=== PATIENT | female | born 1945 | race Caucasian/White ===

== ENCOUNTER 2019-08-24 09:16 | Outpatient (CLI) | payer MEDICARE, SELFPAY ==
--- NOTE | 2019-08-24 09:24 | MM_ITS ---
WS: [id number] BILATERAL DIGITAL SCREENING MAMMOGRAPHY WITH CAD CLINICAL INFORMATION: SREEN HISTORY: Screening mammogram. No current complaints. COMPARISON: March 19, 2018 TECHNIQUE: Bilateral CC and MLO views. FINDINGS: Scattered fibroglandular densities bilaterally. No suspicious focal mass, asymmetry, calcifications, or architectural distortion. No evidence of malignancy. Stable nodular dense breast tissue subareolar right breast unchanged MM/[place] [id number] IMPRESSION: BI-RADS: 2-Benign FOLLOW UP: 1 Year Follow-up Recommend return to annual screening mammography.
== END 2019-08-24 09:17 | disposition home or self-care (01) ==
LOC: RADSHAW 09:16
PROVIDERS: PCP Electrodiagnostic Medicine; Visit Provider Electrodiagnostic Medicine
DX: Z12.31 Encounter for screening mammogram for malignant neoplasm of breast (principal)
CPT/HCPCS: 77067

== ENCOUNTER 2020-10-06 13:07 | Outpatient (CLI) | payer MEDICARE, SELFPAY ==
--- NOTE | 2020-10-06 13:20 | MM_ITS ---
WS: [id number] SCREENING DIGITAL MAMMOGRAM WITH CAD HISTORY: SCREENING COMPARISON: 08/24/2019, 03/19/2018 and 02/24/2017 Bilateral CC and MLO views submitted. Computer aided detection analyzed. Breast composition: There are scattered areas of fibroglandular density. Nodule with focal calcificat ion measuring 7 mm at 12:00 RIGHT breast, middle depth. This nodule may have been present on prior st udies but appears slightly more dense today and the calcification is new. Otherwise no suspicious nita nges. MM/[place] [id number] IMPRESSION: BI-RADS: 0-Incomplete: Need additional imaging evaluation FOLLOW UP: Need Additional Imaging RIGHT breast: Spot compression views (CC and MLO). True ML. Ultrasound to follo w if abnormality persists.
== END 2020-10-06 13:08 | disposition home or self-care (01) ==
PROVIDERS: PCP Electrodiagnostic Medicine; Visit Provider Electrodiagnostic Medicine
DX: Z12.31 Encounter for screening mammogram for malignant neoplasm of breast (principal)
CPT/HCPCS: 77067

== ENCOUNTER 2020-10-08 15:08 | Emergency (ER) | payer MEDICARE, SELFPAY ==
[2020-10-08 16:29] VITALS: BP 129/56; PULSE 58; RESP 18; TEMP 36.7; O2SAT 99; BMI 21.4
--- NOTE | 2020-10-08 16:44 | CTR_ITS ---
PROCEDURE INFORMATION: Exam: CT Head Without Contrast Exam date and time: 10/08/2020 4:44 PM Age: 74 years old Clinical indication: Injury or trauma; Blunt trauma (contusions or hematomas); Consciousness not specified; Patient HX: ? Syncope and fall from standing hematoma to forehead and lac to nose; Additional info: Head injury TECHNIQUE: Imaging protocol: Computed tomography of the head without contrast. Radiation optimization: All CT scans at this facility use at least one of these dose optimization techniques: automated exposure control; mA and/or kV adjustment per patient size (includes targeted exams where dose is matched to clinical indication); or iterative reconstruction. COMPARISON: No relevant prior studies available. RADIATION DOSE METRICS: Total DLP (mGy-cm): 727.86 FINDINGS: Brain: Normal. No hemorrhage. Unremarkable white matter. No mass effect. Cerebral ventricles: No ventriculomegaly. Paranasal sinuses: Visualized sinuses are unremarkable. No fluid levels. Mastoid air cells: Visualized mastoid air cells are well aerated. Bones/joints: Unremarkable. No acute fracture. Soft tissues: Right frontal contusion. Nose laceration noted. CT/CT head wo con* [id number] IMPRESSION: Right frontal contusion and nose laceration. No acute intracranial abnormality. Radiation Dose CTDIVOL = (mGy): DLP = 727.86 (mGy-cm)
--- NOTE | 2020-10-08 17:11 | ECG_ITS ---
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 Measurements Intervals [place] Rate: 51 P: 60 WI: 180 QRS: -1 QRSD: 82 T: 62 QT: 433 QTc: 400 Interpretive Statements SINUS BRADYCARDIA LOW QRS VOLTAGE IN PRECORDIAL LEADS [QRS DEFLECTION < 1.0 mV IN CHEST LEADS] No previous ECG available for comparison Electronically Signed On 10-09-2020 18:11:07 CDT by Chris Zurita M.D. [id number]
--- NOTE | 2020-10-08 17:11 | XRR_ITS ---
PROCEDURE INFORMATION: Exam: XR Chest Exam date and time: 10/08/2020 5:11 PM Age: 74 years old Clinical indication: Other: Syncope TECHNIQUE: Imaging protocol: XR of the chest. Views: 1 view. COMPARISON: No relevant prior studies available. FINDINGS: Lungs: Unremarkable. No consolidation. Pleural spaces: Unremarkable. No pleural effusion. No pneumothorax. Heart/Mediastinum: Unremarkable. No cardiomegaly. Bones/joints: Unremarkable. XR/XR chest 1V portable [id number] IMPRESSION: No acute findings.
[2020-10-08 18:38] LABS: Basophils # 0.1 10^3/uL (0.0-0.1); Basophils % 0.5 %; Eosinophils % 0.1 %; Hematocrit 44.7 % (37.0-47.0); Hemoglobin 14.5 g/dL (11.5-15.3); Lymphocytes % 17.4 %; Mean Corpuscular HGB Conc 32.4 g/dL (30.0-36.0); Mean Corpuscular Hemoglobin 30.3 pg (28.0-34.0); Mean Corpuscular Volume 93.5 fL (81-99); Mean Platelet Volume 10.8 fL (7.4-10.4); Monocytes # 0.5 10^3/uL (0.2-0.9); Monocytes % 4.5 %; Neutrophils # 8.79 10^3/uL (1.8-7.7); Neutrophils % 77.2 %; Nucleated Red Blood Cells % 0 %; Platelet Count 201 10^3/cmm (130-400); Red Blood Count 4.78 10^6/uL (4.1-5.3); Red Cell Distribution Width 12.5 % (12.1-15.1); White Blood Count 11.4 10^3/uL (4.0-10.0)
[2020-10-08 18:51] LABS: INR 0.95 (0.8-1.2)
[2020-10-08 18:56] LABS: Troponin(5th) Baseline 9 ng/L (0-10)
[2020-10-08 18:58] LABS: Alanine Aminotransferase 15 U/L (0-33); Albumin Level 4.6 g/dL (3.5-5.2); Alkaline Phosphatase 84 IU/L (35-105); Carbon Dioxide 28 mmol/L (22-29); Chloride 101 mmol/L (98-107); Globulin 2.5 g/dL (1.3-4.6); Glucose 96 mg/dL (65-115); Sodium 140 mmol/L (136-145); Total Bilirubin 0.5 mg/dL (0.15-1.2); Total Protein 7.1 g/dL (6.6-8.7)
--- NOTE | 2020-10-08 19:11 | ECG_ITS ---
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 Measurements Intervals [place] Rate: 55 P: 68 CA: 181 QRS: -6 QRSD: 87 T: 54 QT: 423 QTc: 405 Interpretive Statements SINUS BRADYCARDIA Compared to ECG 10/08/2020 17:22:27 No significant changes Electronically Signed On 10-09-2020 18:12:49 CDT by Chris Zurita M.D. [id number]
[2020-10-08 19:18] LABS: Blood Urea Nitrogen 14 mg/dL (8-23); Calcium 9.8 mg/dL (8.5-10.5); Osmolality Calculated 290 mOsm/kg (285-295)
[2020-10-08 19:20] LABS: Anion Gap 17.3 (5-19); Aspartate Amino Transferase 29 U/L (0-32); Potassium 5.3 mmol/L (3.5-5.1)
[2020-10-08 19:36] LABS: Add Urine Microscopic? NO; Charge for UA Resulting for Rev
[2020-10-08 19:44] LABS: Urine Appearance Clear (CLEAR); Urine Color Straw (Yellow)
[2020-10-08 19:45] LABS: Bilirubin Urine Neg (Negative); Blood Urine Neg (Negative); Glucose Urine UA Norm (Normal); Ketones Urine Negative (Negative); Leukocyte Esterase Urine Negative (Negative); Nitrate Urine Negative (Negative); Protein Urine Neg (Negative); Sulfosalicylic Acid Urine Negative (Negative); Urobilinogen Urine Norm (Negative); pH Urine 8 (5-7)
--- NOTE | 2020-10-08 20:37 | ED_ITS ---
HPI - Wound/Laceration General: Chief Complaint: Wound/Laceration Stated Complaint: FELL FROM STANDING HT, HIT HEAD ON COUNTER/LAC Time Seen by Provider: 10/08/20 16:38 Source: patient and family () Mode of arrival: ambulatory Limitations: no limitations History of Present Illness: HPI narrative: 74-year-old female patient was brought into the emergency department by her after a fall. The patient was in the kitchen could not subacute combined and does not know what happened next. She woke up on the floor and had a caught to her nose. She called out for her who helped her up. She does not think she had any chest pain or dizziness prior to the fall but she cannot remember. Her only complaint now is mild pain to the area of the laceration on her nose. Onset (ago): hour(s) (1) Location: face Place: home Context: accidental Associated symptoms: Denies chills, fever(s), foreign body sensation, inability to move, nausea, numbness, pain, syncope or vomiting Review of Systems General: Reports: 10 or more systems reviewed and unremarkable except in HPI and below Const: Denies: fever(s) or chills Card: Denies: syncope GI: Denies: nausea or vomiting Physical Exam Const: COMMON NORMALS: no acute distress, average body habitus, patient oriented x3, no limitations, healthy appearing, alert and well nourished HENMT: COMMON NORMALS: normocephalic and moist oral mucous membranes HEAD & SCALP: normocephalic NOSE: Abnormal external nose present (2 cm laceration on the bridge of her nose with minor bleeding.) nasal laceration Eye: COMMON NORMALS: Equal, round and reactive pupils present, EOMs intact bilaterally, conjunctivae normal and no scleral icterus CONJUNCTIVA: Yes conjunctivae normal PUPIL: Yes Equal, round and reactive pupils present Neck/C-Spine: COMMON NORMALS: full ROM, supple, no meningeal signs, no JVD and No carotid bruits Resp: COMMON NORMALS: normal respiratory effort, No retractions, No use of accessory muscles, clear to auscultation bilaterally and percussion normal AUSCULTATION: clear to auscultation bilaterally PERCUSSION: percussion normal Cardio: COMMON NORMALS: no JVD, regular rate, regular rhythm, S1 normal heart sound present, S2 normal heart sound present, No gallops present (Cardio), No clicks present (Cardio), No murmurs present (Cardio), No rub (Cardio) and Peripheral pulses 2+ throughout RATE: regular rate RHYTHM: regular rhythm HEART SOUNDS: S1 normal heart sound present and S2 normal heart sound present PERIPHERAL PULSES: Peripheral pulses 2+ throughout GI: COMMON NORMALS: Normal to inspection, nondistended, normoactive bowel sounds present, Soft to palpation, non-tender, No hepatosplenomegaly present, no masses and no bruits PALPATION: Yes Soft to palpation and Yes No hepatosplenomegaly present Extremity: COMMON NORMALS: normal to inspection, full ROM, capillary refill normal, no calf tenderness and no pedal edema Neuro: COMMON NORMALS: patient oriented x3 SENSORIUM/ORIENTATION: Yes alert MENINGEAL SIGNS: Yes no meningeal signs Skin: COMMON NORMALS: no rashes or lesions noted, no wounds, turgor normal, no jaundice, no petechiae and no mottling GENERAL SKIN EXAM: no rashes or lesions noted and turgor normal Procedures Laceration Laceration 1: Site: face (nasal bridge) Size (cm): 2 Description: linear Depth: simple, single layer Pre-repair: wound explored, irrigated extensively and deep structures intact Skin layer closed with: other (tissue adhesive) Course Reevaluation(s): Reevaluation #1: Discussed her lab and imaging findings with her. Negative for acute findings. I cannot determine the cause for her fall but it does not appear to be related to anything life-threatening. We will discharge her home with no new orders. She voiced understanding and is in agreement with the plan Time: 20:37 Vital Signs: Vital signs: Vital Signs Temperature 98.1 F 10/08/20 16:29 Pulse Rate 74 10/08/20 21:04 Respiratory Rate 18 10/08/20 21:04 Blood Pressure 122/70 10/08/20 21:04 Pulse Oximetry 97 10/08/20 21:04 MDM - Wound/Laceration MDM Narrative: Medical decision making narrative: 74-year-old female who had a ground-level fall today at home. She does not recall why she fell and so a work-up was done in the emergency department. Work-up was unremarkable and she is discharged home with no new orders. Her wound was cleaned and closed using tissue adhesive. Medical Records: Attestation: I reviewed the patient's medical records. Lab Data: Attestation: I reviewed the patient's lab results. Labs: Lab Results 10/08/20 10/08/20 10/08/20 Range/Units 18:32 18:32 18:32 WBC 11.4 H (4.0-10.0) 10^3/ uL RBC 4.78 (4.1-5.3) 10^6/u L Hgb 14.5 (11.5-15.3) g/dL Hct 44.7 (37.0-47.0) % MCV 93.5 (81-99) fL MCH 30.3 (28.0-34.0) pg MCHC 32.4 (30.0-36.0) g/dL RDW 12.5 (12.1-15.1) % Plt Count 201 (130-400) 10^3/c mm MPV 10.8 H (7.4-10.4) fL Neut % (Auto) 77.2 % Lymph % (Auto) 17.4 % [place] % (Auto) 4.5 % Eos % (Auto) 0.1 % Baso % (Auto) 0.5 % Neut # (Auto) 8.79 H (1.8-7.7) 10^3/u L Lymph # (Auto) 2.0 (0.8-4.8) 10^3/u L [place] # (Auto) 0.5 (0.2-0.9) 10^3/u L Eos # (Auto) 0.0 (0.0-0.8) 10^3/u L Baso # (Auto) 0.1 (0.0-0.1) 10^3/u L Nucleated RBC % (a uto) 0 % Nucleated RBCs # 0.0 /100WBC PT 12.90 (12.1-14.9) SECO NDS INR 0.95 (0.8-1.2) Sodium 140 (136-145) mmol/L Potassium 5.3 H (3.5-5.1) mmol/L Chloride 101 (98-107) mmol/L Carbon Dioxide 28 (22-29) mmol/L Anion Gap 17.3 (5-19) BUN 14 (8-23) mg/dL Creatinine 0.8 (0.5-0.9) mg/dL GFR Calculation Not Reportable Glucose 96 (65-115) mg/dL Calculated Osmolal ity 290 (285-295) mOsm/k g Calcium 9.8 (8.5-10.5) mg/dL Total Bilirubin 0.5 (0.15-1.2) mg/dL AST 29 (0-32) U/L ALT 15 (0-33) U/L Alkaline Phosphata se 84 (35-105) IU/L Troponin T Baselin e (0-10) ng/L Troponin T 120 Min [place] (0-10) ng/L Delta Troponin T (0-10) ABS# Total Protein 7.1 (6.6-8.7) g/dL Albumin 4.6 (3.5-5.2) g/dL Globulin 2.5 (1.3-4.6) g/dL Urine Color (Yellow) Urine Appearance (CLEAR) Urine pH (5-7) Ur Specific Gravit y (1.005-1.030) Urine Protein (Negative) Urine Glucose (UA) (Normal) Urine Ketones (Negative) Urine Blood (Negative) Urine Nitrate (Negative) Urine Bilirubin (Negative) Prot Sulfosalicyli c Acd (Negative) Urine Urobilinogen (Negative) mg/dL Ur Leukocyte Jazlyn ase (Negative) 10/08/20 10/08/20 10/08/20 Range/Units 18:32 19:24 20:49 WBC (4.0-10.0) 10^3/ uL RBC (4.1-5.3) 10^6/u L Hgb (11.5-15.3) g/dL Hct (37.0-47.0) % MCV (81-99) fL MCH (28.0-34.0) pg MCHC (30.0-36.0) g/dL RDW (12.1-15.1) % Plt Count (130-400) 10^3/c mm MPV (7.4-10.4) fL Neut % (Auto) % Lymph % (Auto) % [place] % (Auto) % Eos % (Auto) % Baso % (Auto) % Neut # (Auto) (1.8-7.7) 10^3/u L Lymph # (Auto) (0.8-4.8) 10^3/u L [place] # (Auto) (0.2-0.9) 10^3/u L Eos # (Auto) (0.0-0.8) 10^3/u L Baso # (Auto) (0.0-0.1) 10^3/u L Nucleated RBC % (a uto) % Nucleated RBCs # /100WBC PT (12.1-14.9) SECO NDS INR (0.8-1.2) Sodium (136-145) mmol/L Potassium (3.5-5.1) mmol/L Chloride (98-107) mmol/L Carbon Dioxide (22-29) mmol/L Anion Gap (5-19) BUN (8-23) mg/dL Creatinine (0.5-0.9) mg/dL GFR Calculation Glucose (65-115) mg/dL Calculated Osmolal ity (285-295) mOsm/k g Calcium (8.5-10.5) mg/dL Total Bilirubin (0.15-1.2) mg/dL AST (0-32) U/L ALT (0-33) U/L Alkaline Phosphata se (35-105) IU/L Troponin T Baselin e 9 (0-10) ng/L Troponin T 120 Min [place] 8.09 (0-10) ng/L Delta Troponin T -0.91 L (0-10) ABS# Total Protein (6.6-8.7) g/dL Albumin (3.5-5.2) g/dL Globulin (1.3-4.6) g/dL Urine Color Straw (Yellow) Urine Appearance Clear (CLEAR) Urine pH 8 H (5-7) Ur Specific Gravit y 1.010 (1.005-1.030) Urine Protein Neg (Negative) Urine Glucose (UA) Norm (Normal) Urine Ketones Negative (Negative) Urine Blood Neg (Negative) Urine Nitrate Negative (Negative) Urine Bilirubin Neg (Negative) Prot Sulfosalicyli c Acd Negative (Negative) Urine Urobilinogen Norm (Negative) mg/dL Ur Leukocyte Jazlyn ase Negative (Negative) Imaging Data^: CXR: Attestation: I personally reviewed and interpreted this imaging study as follows: Radiologist's impression: [employer] [address]LLnc ReportSigned Patient: Ysabel Jeter #: [id number]: 1945cct#:[id number]/Sex: FADM Date: 10/08/20Loc: ERRoom/Bed:Attending Dr: Ordering Provider/Ordering MD: Arnie Morel MD, [facility] Date of Service: 10/08/20 Procedure(s): XR chest 1V portable [id number] Accession Number(s): [id number] Report Number: [id number] PROCEDURE INFORMATION: Exam: XR Chest Exam date and time: 10/08/2020 5:11 PM Age: 74 years old Clinical indication: Other: Syncope TECHNIQUE: Imaging protocol: XR of the chest. Views: 1 view. COMPARISON: No relevant prior studies available. FINDINGS: Lungs: Unremarkable. No consolidation. Pleural spaces: Unremarkable. No pleural effusion. No pneumothorax. Heart/Mediastinum: Unremarkable. No cardiomegaly. Bones/joints: Unremarkable. XR/XR chest 1V portable [id number] IMPRESSION: No acute findings. Dictated By:Pranav Alexandre DOSigned By:Pranav Alexandre DOSigned Date/Time:10/08/20/ 06 CT Head: Attestation: I personally reviewed and interpreted this imaging study as follows: Radiologist's impression: [id number], [place] [address]TT Scan ReportSigned Patient: Ysabel Jeter #: [id number]: 1945cct#:[id number]/Sex: FAD Date: 10/08/20Loc: ERRoom/Bed:Attending Dr: Ordering Provider/Ordering MD: Arnie Morel MD, [facility] Date of Service: 10/08/20 Procedure(s): CT head wo con* [id number] Accession Number(s): [id number] Report Number: [id number] PROCEDURE INFORMATION: Exam: CT Head Without Contrast Exam date and time: 10/08/2020 4:44 PM Age: 74 years old Clinical indication: Injury or trauma; Blunt trauma (contusions or hematomas); Consciousness not specified; Patient HX: ? Syncope and fall from standing hematoma to forehead and lac to nose; Additional info: Head injury TECHNIQUE: Imaging protocol: Computed tomography of the head without contrast. Radiation optimization: All CT scans at this facility use at least one of these dose optimization techniques: automated exposure control; mA and/or kV adjustment per patient size (includes targeted exams where dose is matched to clinical indication); or iterative reconstruction. COMPARISON: No relevant prior studies available. RADIATION DOSE METRICS: Total DLP (mGy-cm): 727.86 FINDINGS: Brain: Normal. No hemorrhage. Unremarkable white matter. No mass effect. Cerebral ventricles: No ventriculomegaly. Paranasal sinuses: Visualized sinuses are unremarkable. No fluid levels. Mastoid air cells: Visualized mastoid air cells are well aerated. Bones/joints: Unremarkable. No acute fracture. Soft tissues: Right frontal contusion. Nose laceration noted. CT/CT head wo con* [id number] IMPRESSION: Right frontal contusion and nose laceration. No acute intracranial abnormality. Radiation Dose CTDIVOL = (mGy): DLP = 727.86 (mGy-cm) Dictated By:Pranav Alexandre DOSigned By:Pranav Alexandre DOSigned Date/Time:10/08/201727DD/ 25 EKG Data^: EKG 1: Attestation: I personally reviewed and interpreted this EKG as follows: EKG interpretation date: 10/08/20 EKG interpretation time: 17:22 Prior EKG tracings: not available for review Interpretation: Sinus bradycardia. Heart rate 51 bpm. Normal axis. No ST changes. EKG 2: Attestation: I personally reviewed and interpreted this EKG as follows: EKG interpretation date: 10/08/20 EKG interpretation time: 19:24 Prior EKG tracings: available for review Interpretation: Sinus bradycardia. Heart rate 55 bpm. Normal axis. No ST changes. No significant change from earlier. Discharge Plan Discharge Patient Disposition: Home Clinical Impression: Fall against object Laceration of nose Qualifiers: Encounter type: initial encounter Qualified Code(s): S01.21XA - Laceration without foreign body of nose, initial encounter Mild closed head injury Qualifiers: Encounter type: initial encounter Qualified Code(s): S09.90XA - Unspecified injury of head, initial encounter Condition: Stable Prescriptions: Continued citalopram 20 mg tablet 10 mg PO QAM RF: 0 levothyroxine 50 mcg tablet 50 mcg PO QAM RF: 0 calcium carbonate-vitamin D2 600 mg calcium- 200 unit Tablet 1 tab PO BID RF: 0 ezetimibe 10 mg tablet 10 mg PO QAM RF: 0 Discharge Orders: Discharge ED (Routine); Ordered 10/08/20 Ordered By: Arnie Morel Referrals: Justin Jeter DO [Primary Care Provider] - 1-3 days Discharge Diet: Usual diet Discharge Activity: Increase activity as tolerated Patient Instructions: Fall Prevention for Older Adults (ED), Minor Head Injury (ED), Skin Adhesive Care (ED) Activity Restrictions/Additional Instructions: Return for any new or worsening symptoms. Follow-up with the primary care provider within 3 days. Keep your wound clean and dry. The Steri-Strips will fall off on their own, you do not need to take them off. Coding Level of Care Code ED Clothing Pattern Preparer for Parris Villalta
[2020-10-08 21:04] VITALS: BP 122/70; PULSE 74; RESP 18; O2SAT 97
[2020-10-08 21:13] LABS: Troponin 5 2HR 8.09 ng/L (0-10)
[2020-10-08 21:19] LABS: Troponin 5 2HR Delta -0.91 ABS# (0-10)
== END 2020-10-08 20:50 | disposition home or self-care (01) ==
PROVIDERS: Emergency Provider Family Medicine; PCP Electrodiagnostic Medicine
DX: S01.21XA Laceration without foreign body of nose, initial encounter (principal); S09.8XXA Other specified injuries of head, initial encounter; W19.XXXA Unspecified fall, initial encounter
CPT/HCPCS: 12011; 36415; 70450; 71045; 80053; 81003; 84484; 85025; 85610; 93005; 99283

== ENCOUNTER 2020-10-23 08:32 | Outpatient (CLI) | payer MEDICARE, SELFPAY ==
--- NOTE | 2020-10-23 08:37 | MM_ITS ---
WS: [id number] Exam: [place] [id number] Date/Time of Exam: 10/23/2020 9:02 AM Reason For Exam: RIGHT BREAST MASS Magnification compression spot images of the right breast are performed in the MLO and CC projections . A 90 degree lateral image of the right breast was also included in the series. Comparison made to s creening mammogram performed 10/06/2020. A persistent 7 mm ovoid nodule seen at the 12:00 position in the right breast at mid depth. No suspic ious architectural distortion or microcalcification noted. Recommendations: Regional ultrasound recommended for further workup. MM/[place] [id number] IMPRESSION: 1. Persistent 7 mm ovoid nodule seen at the 12:00 position in the right breast. BI-RADS Category 0.
--- NOTE | 2020-10-23 08:37 | US_ITS ---
WS: [id number] Exam: US breast RT limited* [id number] Date/Time of Exam: 10/23/2020 8:37 AM Reason For Exam: RIGHT BREAST MASS Regional ultrasound of 12:00 position of the right breast is performed. A 0.6 x 0.31 .57 cm smoothly marginated ovoid nodule is noted at the 12:00 position 3 cm from the nip ple in the right breast. This corresponds to the nodular density identified on the screening and diag nostic mammographic images performed recently. The appearance suggests an intramammary lymph node. No other discrete lesions were identified in this area. Recommendations: Continue yearly screening mammography. US/US breast RT limited* [id number] IMPRESSION: 1. 0.6 x 0.31 x 0.57 cm smoothly marginated ovoid nodule at the 12:00 position in the right breast most likely representing a small intramammary lymph node. T his corresponds to the previously described abnormality on recent mammographic images. BI-RADS Category 2.
== END 2020-10-23 08:33 | disposition home or self-care (01) ==
LOC: RADSHAW 08:35
PROVIDERS: PCP Electrodiagnostic Medicine; Visit Provider Electrodiagnostic Medicine
DX: N63.15 Unspecified lump in the right breast, overlapping quadrants (principal)
CPT/HCPCS: 76642; 77065

== ENCOUNTER 2020-12-25 17:40 | Emergency (ER) | payer MEDICARE, SELFPAY ==
[2020-12-25] VITALS (17 sets, daily range): BP systolic 131–156; BP diastolic 53–65; PULSE 49–76; RESP 15–24; TEMP 36.7; O2SAT 97–100; BMI 21.1
--- NOTE | 2020-12-25 18:21 | ECG_ITS ---
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 Measurements Intervals [place] Rate: 53 P: 72 AK: 190 QRS: 8 QRSD: 82 T: 54 QT: 416 QTc: 393 Interpretive Statements SINUS BRADYCARDIA LOW QRS VOLTAGE IN PRECORDIAL LEADS [QRS DEFLECTION < 1.0 mV IN CHEST LEADS] Compared to ECG 10/08/2020 19:24:37 Low QRS voltage now present Electronically Signed On 12-25-2020 22:07:33 CDT by Chris Zurita M.D. [id number]
[2020-12-25 19:22] LABS: Basophils % 0.5 %; Eosinophils % 0.1 %; Hematocrit 42.8 % (37.0-47.0); Hemoglobin 13.9 g/dL (11.5-15.3); Lymphocytes # 1.8 10^3/uL (0.8-4.8); Lymphocytes % 20.1 %; Mean Corpuscular HGB Conc 32.5 g/dL (30.0-36.0); Mean Corpuscular Hemoglobin 30.8 pg (28.0-34.0); Mean Corpuscular Volume 94.7 fl (81-99); Mean Platelet Volume 10.9 fL (7.4-10.4); Monocytes # 0.3 10^3/uL (0.2-0.9); Monocytes % 3.7 %; Neutrophils # 6.67 10^3/uL (1.8-7.7); Neutrophils % 75.4 %; Nucleated Red Blood Cells % 0 %; Platelet Count 172 10^3/cmm (130-400); Red Blood Count 4.52 10^6/uL (4.1-5.3); Red Cell Distribution Width 12.5 % (12.1-15.1); White Blood Count 8.9 10^3/uL (4.0-10.0)
[2020-12-25 19:38] LABS: Troponin(5th) Baseline 8 ng/L (0-10)
[2020-12-25 19:43] LABS: Alanine Aminotransferase 14 U/L (0-33); Albumin Level 4.4 g/dL (3.5-5.2); Alkaline Phosphatase 74 IU/L (35-105); Aspartate Amino Transferase 27 U/L (0-32); Blood Urea Nitrogen 16 mg/dL (8-23); Calcium 9.4 mg/dL (8.5-10.5); Carbon Dioxide 26 mmol/L (22-29); Chloride 101 mmol/L (98-107); Globulin 2.7 g/dL (1.3-4.6); Glucose 96 mg/dL (65-115); Lipase 42 U/L (13-60); Osmolality Calculated 289 mOsm/kg (285-295); Sodium 139 mmol/L (136-145); Total Bilirubin 0.4 mg/dL (0.15-1.2); Total Protein 7.1 g/dL (6.6-8.7)
[2020-12-25] MEDS: sodium chloride 0.9% 500 ML IV (20:00)
[2020-12-25 20:05] LABS: Anion Gap 16.6 (5-19); Potassium 4.6 mmol/L (3.5-5.1)
[2020-12-25 20:44] LABS: SARS Covid-2 Antigen Negative (Negative)
[2020-12-25 21:25] LABS: Troponin 5 2HR 7.27 ng/L (0-10)
[2020-12-25 21:26] LABS: Troponin 5 2HR Delta -0.73 ABS# (0-10)
--- NOTE | 2020-12-25 21:44 | W.ED.GENADLT ---
HPI - General Adult General: Chief complaint: Weakness Stated complaint: Tingling & Numbness in Hands Time Seen by Provider: 12/25/20 19:06 History of Present Illness: HPI narrative: HPI: [75]yo patient w/ hx of one episode of prior syncope on 09/2020 BIBA after an episode of near syncope and light-headedness lasting for a few seconds. Patient denies any associated LOC. She was sitting down around 4 hrs ago when this happened. Denies any headache, chest pain, SOB, palpitation, or neurological symptoms. The incident was witnessed by the patient's . Shortly after the incident, patient had some numbness in the hands b/l. In addition, she reported having a fit of cough earlier today. Patient denies any post-ictal confusion, tongue biting or bladder/bowel incontinence. Patient denies any prior hx of syncope in the past. No associated symptoms of chest pain, shortness of breath, palpitations or focal weakness right before the incident. No family hx of sudden cardiac or unexplained . Patient is followed by Dr. Jeter from PCP. Onset: 4 hrs ago Duration: once Location: home Severity: mild Review of Systems Narrative: Constitutional: No fever, no chills. HEENT: No vision changes CV: No chest pain, no palpitations PULM: No productive cough, no dyspnea. GI: No abdominal pain, no N/V/D. : No Dysuria MSKEL: No muscle pain SKIN: No new rashes, no lesions. NEURO: No headache, no focal weakness. +presyncope x 1 episode HEME: No visible bruises PSYCH: Normal mood Physical Exam Narrative: EXAM NARRATIVE: Head: Atraumatic Eyes: PERRL, conjunctiva without injection, eyes tracking ENT: Mucous membrane moist NECK: Supple without lymphadenopathy LUNGS: LCTAB CV: RRR ABDOMEN: Soft, nontender in all quadrants, no guarding or rebound tenderness, no CVA or flank tenderness bilaterally EXTREMITY: Normal ROM SKIN: No rash or erythema NEURO: Mental status: A/Ox3 CN II-XII tested and intact. Sensation intact to sharp/dull differentiation in all extremities. Motor: Normal tone and bulk. No abnormal movements appreciated. No pronator drift. Strength tested and 5/5 in bilateral wrist flexion/extension, elbow flexion/extension, shoulder abduction, straight leg raise, knee flexion/extension, ankle dorsiflexion/plantarflexion. Patient ambulates with a steady gait. Coordination: Finger to nose and heel to sanchez testing intact bilaterally. PSYCH: Cooperative mood and affect Course Vital Signs: Vital signs: Vital Signs Temperature 98.1 F 12/25/20 21:53 Pulse Rate 76 12/25/20 21:53 Respiratory Rate 17 12/25/20 21:53 Blood Pressure 142/65 12/25/20 21:53 Pulse Oximetry 99 12/25/20 21:53 MDM - General Adult MDM Narrative: Medical decision making narrative: [75]yo patient w/ hx of one episode of syncope 2 months ago presenting to the ED with Syncope. No association with chest pain, dyspnea, palpitations, or focal neurological deficits. HDS Neuro intact. Fingerstick wnl. Given history, exam and workup, presentation not consistent with seizures given a short time course, no postictal state, no seizure activity. Low suspicion for acute neurologic catastrophes to include ICH given lack of trauma, risk factors for bleeding diathesis, or neurogenic causes of syncope. Low suspicion for vascular catastrophes to include PE, thoracic aortic dissection, AAA rupture. Presentation not consistent with acute life threatening arrhythmia, structural heart disease, electrical conduction abnormalities, or ACS. Workup: EKG, lab workup troponinx 2, telemetry, reassessment, and PO challenge Intervention: Serial reevaluation, telemetry, NS, PO challenge Findings: EKG: No e/o STEMI. No evidence of Brugada?s sign, delta wave, epsilon wave, significantly prolonged QTc, HOCM or malignant arrhythmia. Fingerstick: wnl [9:47pm] On reassessment, patient denies any syncope or near syncope episodes in the ER. Telemetry without any dysrhythmia. Patient has been able to tolerate PO and ambulate in the ER without issues. Given age, limited to no comorbidities, no family hx of SCD, history more consistent with situational/reflex syncope vs orthostatic/decreased fluid intake, patient is unlikely to experience sudden cardiac decompensation at this time and will NOT benefit from inpatient observation/telemetry at this time. Although the incidence of paroxysmal ventricular tachycardia/VF is very unlikely, I instructed the patient to follow up with a PCP Dr. Jeter and a Lan Analyst for further evaluation of naer syncope should the patient need it. There is noted TW1 in V1-V2 that also needed to be followed upon and patient aware of this. I have given patient follow up with our case management director to be seen by our outpatient Cardiology for holter since patient was planing to do so with Dr. Jeter. Patient aware of a call from our case management director to schedule for appointment(s) and reassures me that she will follow up with Dr. Jeter in the next 48 hrs. Disposition: Discharge. Patient is at baseline at this time. Return precautions expressed and understood in person. Advised follow up with a primary care provider or clinic physician in the next 24-48 hours. Given return instructions for any new or concerning symptoms including chest pain, focal neurological deficits, dyspnea, or any new or concerning findings. Lab Data: Labs: Lab Results 12/25/20 12/25/20 12/25/20 19:00 19:00 19:00 WBC 8.9 10^3/uL 10^3/ uL (4.0-10.0) RBC 4.52 10^6/uL 10^6 /uL (4.1-5.3) Hgb 13.9 g/dL g/dL (11.5-15.3) Hct 42.8 % % (37.0-47.0) MCV 94.7 fl fl (81-99) MCH 30.8 pg pg (28.0-34.0) MCHC 32.5 g/dL g/dL (30.0-36.0) RDW 12.5 % % (12.1-15.1) Plt Count 172 10^3/cmm 10^3 /cmm (130-400) MPV 10.9 fL H fL (7.4-10.4) Neut % (Auto) 75.4 % % Lymph % (Auto) 20.1 % % [place] % (Auto) 3.7 % % Eos % (Auto) 0.1 % % Baso % (Auto) 0.5 % % Neut # (Auto) 6.67 10^3/uL 10^3 /uL (1.8-7.7) Lymph # (Auto) 1.8 10^3/uL 10^3/ uL (0.8-4.8) [place] # (Auto) 0.3 10^3/uL 10^3/ uL (0.2-0.9) Eos # (Auto) 0.0 10^3/uL 10^3/ uL (0.0-0.8) Baso # (Auto) 0.0 10^3/uL 10^3/ uL (0.0-0.1) Nucleated RBC % (a uto) 0 % % Nucleated RBCs # 0.0 /100WBC /100W BC Sodium 139 mmol/L mmol/L (136-145) Potassium 4.6 mmol/L mmol/L (3.5-5.1) Chloride 101 mmol/L mmol/L (98-107) Carbon Dioxide 26 mmol/L mmol/L (22-29) Anion Gap 16.6 (5-19) BUN 16 mg/dL mg/dL (8-23) Creatinine 0.8 mg/dL mg/dL (0.5-0.9) GFR Calculation Not Reportable Glucose 96 mg/dL mg/dL (65-115) Calculated Osmolal ity 289 mOsm/kg mOsm/ kg (285-295) Calcium 9.4 mg/dL mg/dL (8.5-10.5) Total Bilirubin 0.4 mg/dL mg/dL (0.15-1.2) AST 27 U/L U/L (0-32) ALT 14 U/L U/L (0-33) Alkaline Phosphata se 74 IU/L IU/L (35-105) Troponin T Baselin e 8 ng/L ng/L (0-10) Troponin T 120 Min [place] Delta Troponin T Total Protein 7.1 g/dL g/dL (6.6-8.7) Albumin 4.4 g/dL g/dL (3.5-5.2) Globulin 2.7 g/dL g/dL (1.3-4.6) Lipase 42 U/L U/L (13-60) Nasal/Oral COVID-1 9 PCR SARS-CoV-2 Ag (Rap id) 12/25/20 12/25/20 12/25/20 19:59 19:59 20:49 WBC RBC Hgb Hct MCV MCH MCHC RDW Plt Count MPV Neut % (Auto) Lymph % (Auto) [place] % (Auto) Eos % (Auto) Baso % (Auto) Neut # (Auto) Lymph # (Auto) [place] # (Auto) Eos # (Auto) Baso # (Auto) Nucleated RBC % (a uto) Nucleated RBCs # Sodium Potassium Chloride Carbon Dioxide Anion Gap BUN Creatinine GFR Calculation Glucose Calculated Osmolal ity Calcium Total Bilirubin AST ALT Alkaline Phosphata se Troponin T Baselin e Troponin T 120 Min [place] 7.27 ng/L ng/L (0-10) Delta Troponin T -0.73 ABS# L ABS# (0-10) Total Protein Albumin Globulin Lipase Nasal/Oral COVID-1 9 PCR Not detected SARS-CoV-2 Ag (Rap id) Negative (Negative) Discharge Plan Discharge Patient Disposition: Home Clinical Impression: Light headedness Condition: Stable Prescriptions: No Action citalopram 20 mg tablet 10 mg PO QAM RF: 0 levothyroxine 50 mcg tablet 50 mcg PO QAM RF: 0 calcium carbonate-vitamin D2 600 mg calcium- 200 unit Tablet 1 tab PO BID RF: 0 ezetimibe 10 mg tablet 10 mg PO QAM RF: 0 Discharge Orders: Discharge ED (Routine); Ordered 12/25/20 Ordered By: Susan Loyola Referrals: Justin Jeter DO [Primary Care Provider] - Patient Instructions: Syncope (ED), Opioid Safety Activity Restrictions/Additional Instructions: Our case management director will have you follow-up with Cardiology in the next few days. You would be expected to have a phone call with our case management director who will put you on the schedule. Please follow up with Dr. Jeter in the next 48 hrs. back to the emergency room if you have any lightheadedness, arm leg weakness, facial droop, chest pain, or any new or concerning complaints. Coding Level of Care Code ED Accounts Receivable Collector for Parris Villalta
--- NOTE | 2020-12-26 08:59 | DCPLANNER ---
Addendum entered by Leta Duarte 04/20/21 11:23: Patient had a follow up appointment scheduled for 01.03.21 with heart care - patient did attend appointment. Original Note: storage center manager had message to schedule a follow up appointment for patient with heart care. storage center manager called heart care, spoke with Hilda, gave clinic patients information. A follow up appointment was scheduled for Friday, January 03, 2021 at 2:[address] Tariq. storage center manager called patient and gave patient the appointment information and the phone number to clinic, if appointment needs to be changed or rescheduled.
[2020-12-26 16:06] LABS: Coronavirus Test Green County Not Detected
== END 2020-12-25 21:53 | disposition home or self-care (01) ==
PROVIDERS: Emergency Provider Emergency Medicine; PCP Electrodiagnostic Medicine
DX: R42 Dizziness and giddiness (principal); Z20.822 Contact with and (suspected) exposure to COVID-19
CPT/HCPCS: 36415; 80053; 83690; 84484; 85025; 87426; 87635; 93005; 96360; 99284; J7040

== ENCOUNTER 2021-01-03 14:06 | Outpatient (CLI) | payer MEDICARE, SELFPAY ==
--- NOTE | 2021-01-03 14:15 | USCV_ITS ---
Ysabel Jeter Age: 75 Gender: F : 1945 Exam Date: 01/03/2021 14:31 Ordering Phys: Justin Jeter DO Technologist: Josee He Exam Location: [facility] [place] Indication: bradycardia BP: 106 / 68 HR: 52 Rhythm: Sinus Technical Quality: Good MEASUREMENTS (Male / Female) Normal Values 2D ECHO LV Diastolic Diameter PLAX 3.9 cm 4.2 - 5.9 / 3.9 - 5.3 cm LV Systolic Diameter PLAX 2.3 cm IVS Diastolic Thickness 0.8 cm 0.6 - 1.0 / 0.6 - 0.9 cm IVS Systolic Thickness 1.2 cm LVPW Diastolic Thickness 0.6 cm 0.6 - 1.0 / 0.6 - 0.9 cm LVPW Systolic Thickness 1.1 cm LVOT Diameter 2.1 cm LV Ejection Fraction 2D Teich 73.1 % LV Ejection Fraction MOD 2C 76.7 % LV Ejection Fraction 2C AL 76.9 % LA Diameter 2.5 cm LA Width 2.8 cm LA Height 3.4 cm RA Width 3.1 cm RA Height 4.4 cm Aorta at Sinotubular Diameter 3.2 cm DOPPLER AV Peak Velocity 123.0 cm/s LVOT Peak Velocity 101.0 cm/s AV Area Cont Eq vti 3.1 cm squared AV Area Cont Eq pk 2.8 cm squared MV Peak Velocity 78.0 cm/s MV Area PHT 4.0 cm squared Mitral E to A Ratio 1.3 MV E' Velocity 39.5 cm/s Mitral E to MV E' Ratio 5.7 Mitral E to LV E' Lateral Ratio 5.5 Mitral E to LV E' Septal Ratio 6.0 TR Peak Velocity 212.5 cm/s TR Peak Gradient 18.1 mmHg Right Atrial Pressure 3.0 mmHg Pulmonary Artery Systolic Pressu 21.1 mmHg PV Peak Velocity 43.0 cm/s RV Acceleration Time 0.1 s RV Ejection Time 0.3 s RV AcT/ET 0.3 FINDINGS Left Ventricle Normal left ventricular size and systolic function, EF 78 %. No regional wall motion abnormalities. Right Ventricle The right ventricle is normal in size and function. Right Atrium Mildly increased right atrial size. Left Atrium The left atrium is normal in size. Mitral Valve Mild to moderate mitral valve regurgitation. Multiple regurgitant jets were noted Aortic Valve Thickened aortic valve. [id number] aortic valve regurgitation. Tricuspid Valve Moderate tricuspid valve regurgitation. Pulmonic Valve No gross abnormalities noted Pericardium Normal pericardium without effusion. Aorta Normal ascending aorta dimension. CONCLUSIONS Normal left ventricular size and systolic function, EF 78 %. No regional wall motion abnormalities. Mildly increased right atrial size. Mild to moderate mitral valve regurgitation. Multiple regurgitant jets were noted. Thickened aortic valve. [id number] aortic valve regurgitation. Moderate tricuspid valve regurgitation. There is no pericardial effusion. There are no intracardiac masses. Estimated pulmonary artery peak systolic pressure was 21 mmHg No previous study is available for comparison. Dr Hayde Tariq MD FAC (Electronically Signed) Final Date: 04 January 2021 00:04 S
--- NOTE | 2021-01-03 15:00 | USCV_ITS ---
Ysabel Jeter Age: 75 Gender: F : 1945 Exam Date: 01/03/2021 14:53 Ordering Phys: Justin Jeter DO Technologist: Josee He [place] [facility] [place]ication: carotid stenosis Risk Factors: Previous Vascular Surgery: Right Brachial BP: / Left Brachial BP: / Right Left Velocity (cm/s) Spectral Plaque Velocity (cm/s) Spectral Plaque Syst/Diast Broadening Syst/Diast Broadening 68.40/ 8.50 Prox CCA 80.50 / 14.30 67.50/ 7.70 Mid CCA 55.10 / 12.10 49.60/ 11.10 Distal CCA 42.10 / 9.90 30.80/ 4.30 Prox ICA 56.50 / 11.20 42.70/ 12.50 Mid ICA 114.40/ 31.60 98.00/ 21.10 Distal ICA 143.30/ 35.50 38.80 ECA 38.80 1.43 ICA/CCA 1.78 Antegrade Vertebral Antegrade 51.90/ 9.20 cm/s 110.4/ 15.80 cm/s 0 Tri Subclavian Tri 63.80 67.40 FINDINGS Intimal thickening and minimal plaques of the bifurcations bilaterally. Relatively high velocities of the distal ICAs bilaterally, possibly due to tortuosities Normal Doppler velocities in the external carotid and subclavian arteries bilaterally CONCLUSIONS Intimal thickening and minimal plaques of the bifurcations bilaterally. Relatively elevated velocities in the distal ICAs bilaterally, may suggest tortuosity/hemodynamically significant stenosis Consider CTA, to better evaluate the distal carotid arteries, if clinically indicated Dr Hayde Tariq MD FAC (Electronically Signed) Final Date: 03 January 2021 17:10 S
== END 2021-01-03 14:07 | disposition home or self-care (01) ==
LOC: US 14:11
PROVIDERS: PCP Electrodiagnostic Medicine; Visit Provider Electrodiagnostic Medicine
DX: R55 Syncope and collapse (principal); I65.23 Occlusion and stenosis of bilateral carotid arteries; R00.1 Bradycardia, unspecified; F32.9 Major depressive disorder, single episode, unspecified; E03.9 Hypothyroidism, unspecified; I08.3 Combined rheumatic disorders of mitral, aortic and tricuspid valves
CPT/HCPCS: 93306; 93880

== ENCOUNTER 2021-01-18 09:18 | Outpatient (CLI) | payer MEDICARE, SELFPAY ==
--- NOTE | 2021-01-18 09:33 | CT_ITS ---
WS: [id number] CT ANGIOGRAM CEREBRAL AND CAROTID ARTERIES HISTORY: I65.23 - Occlusion and stenosis of bilateral carotid arteries. TECHNIQUE: CT angiogram is pe rformed of the carotid and cerebral arteries. During arterial injection imaging is obtained from the skull vertex to the aortic arch in 1.25 mm imaging. Coronal and sagittal reformats are submitted. Add itional multi planar reformats of the carotid and cerebral arteries are submitted, MIP imaging also r eviewed. NASCET criteria utilized. All CT scans at [facility] use at least one of these dose optimization techniques: automated exposure control; mA and/or kV adjustment per patient size (includ es targeted exams where dose is matched to clinical indication); or iterative reconstruction. CONTRAST: Omnipaque 350; 95 mL IV. DLP: 1206.11 mGy.cm COMPARISON: Carotid ultrasound 01/03/2021 Carotid Angiogram: Right carotid: Common carotid artery: Arises normally from the innominate artery. No significant plaque or stenosis. Internal carotid artery: No plaque or stenosis. External carotid artery: Patent. Left carotid: Common carotid artery: Bovine arch. No stenosis. Internal carotid artery: No plaque or stenosis. External carotid artery: Patent. Right vertebral artery: Mild narrowing in the transverse foramina at the C5 level. No occlusion. Left vertebral artery: Dominant with no occlusions. No high-grade stenosis. Subclavian arteries: No stenosis or significant abnormality. Upper thorax: Mild hyperexpansion. Motion artifact due to breathing. Thyroid gland: Motion artifact obscuring the soft tissues of the neck. Small caliber thyroid. Osseous structures: Mild cervical spondylosis. CEREBRAL ANGIOGRAM: Intracranial vertebral arteries: LEFT vertebral artery is very mildly dominant. No stenosis. Basilar artery: No significant stenosis or occlusion. No aneurysm. Intracranial Internal carotid arteries: Very mild atherosclerotic plaque within the petrous segment o f the RIGHT ICA. Middle cerebral arteries: Normal. Anterior cerebral arteries and ACOM: Normal. Posterior cerebral arteries and PCOM's: Normal. Dural venous sinuses are normally enhancing. Mastoid air cells: Normal. Paranasal sinuses: Normal. Calvarium: Normal. CT/CT angio headneck* [id number] IMPRESSION: 1. No significant cervical carotid artery stenosis. 2. Mild atherosclerotic disease within the RIGHT petrous portion ICA. No high- grade stenosis. 3. No aneurysms.
[2021-01-18] MEDS: iohexol 350 mg/mL 100 mL Btl IV (10:00)
== END 2021-01-18 09:19 | disposition home or self-care (01) ==
LOC: RADWPI 09:21
PROVIDERS: PCP Electrodiagnostic Medicine; Visit Provider Electrodiagnostic Medicine
DX: I65.23 Occlusion and stenosis of bilateral carotid arteries (principal); R55 Syncope and collapse
CPT/HCPCS: 70496; 70498; Q9967

== ENCOUNTER 2023-11-19 10:23 | Emergency (ER) | payer MEDICARE, SELFPAY ==
[2023-11-19 10:31] VITALS: BP 170/53; PULSE 41; RESP 18; TEMP 36.6; O2SAT 100; BMI 22.9
--- NOTE | 2023-11-19 10:55 | ECG_ITS ---
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 Measurements Intervals [place] Rate: 42 P: 71 DC: 183 QRS: -8 QRSD: 90 T: 48 QT: 497 QTc: 416 Interpretive Statements SINUS BRADYCARDIA LOW QRS VOLTAGE IN PRECORDIAL LEADS [QRS DEFLECTION < 1.0 mV IN CHEST LEADS] POSSIBLE ANTERIOR MYOCARDIAL INFARCTION , PROBABLY OLD [30 ms Q WAVE IN V3/V4, OR R < 0.2 mV IN V4] Compared to ECG 12/25/2020 17:58:55 Myocardial infarct finding now present Electronically Signed On 11-20-2023 0:16:40 CDT by Hayde Tariq M.D. [id number]
--- NOTE | 2023-11-19 11:19 | CT_ITS ---
WS: [id number] CT HEAD NONCONTRAST HISTORY: weakness TECHNIQUE: Contiguous axial imaging performed through the brain in 2.0 mm imaging. Bone and soft tiss ue windows. Sagittal and coronal reformats reviewed. All CT scans at [place] use at least one of these dose optimization techniques: automated exposure control; mA and/or kV adjustment per pa tient size (includes targeted exams where dose is matched to clinical indication); or iterative recon struction. DLP: 1008.58 mGy.cm COMPARISON: 10/08/2020 No acute intracranial hemorrhage, midline shift or mass effect. Mild atrophy and mild small vessel ischemic disease. Mild progression of atrophy and small vessel dis ease since 2020. Small lacunar infarct LEFT insular ribbon. Ventricles: Normal size with no hydrocephalus. No inferior displacement of cerebellar tonsils. Paranasal sinuses: As visualized are clear. Mastoid air cells: Well pneumatized. Calvarium and scalp: Skull is intact with no soft tissue edema or swelling. CT/CT head wo con* [id number] IMPRESSION: 1. No acute intracranial hemorrhage or edema. 2. Mild atrophy and small vessel disease which has progressed since 2020. 3. Remote lacunar infarct LEFT insular ribbon.
--- NOTE | 2023-11-19 11:21 | ED_ITS ---
HPI - General Adult 2 General: Chief complaint: General Medical Stated complaint: numbness/tingling lips and fingers Time Seen by Provider: 11/19/23 10:46 Source: patient Mode of arrival: ambulatory Limitations: no limitations History of Present Illness: 5-year-old female states she has been jiang ving some just generalized fatigue that is been mild for the last 3 days states this morning she had had some tingling to her face along with bilateral hands states it is improved she denies any focal weakness she denies any blurred vision she denies any slurred speech. Patient denies headache or chest pain. Associated symptoms: Deny chest pain, dyspnea, headache(s), nausea, rash or vomiting Related Data Home Medications Medication Instructions Recorded Confirmed calcium carbonate 600 mg-vitamin 1 tab PO DAILY 01/22/21 11/19/23 D3 20 mcg (800 unit) chewable tablet (Caltrate 600 plus D) cyanocobalamin (vitamin B-12) 100 100 mcg PO DAILY 01/22/21 11/19/23 mcg tablet levothyroxine 50 mcg tablet 25 mcg PO QAM 01/22/21 11/19/23 alendronate 70 mg tablet 70 mg PO Q7D 11/19/23 11/19/23 atorvastatin 10 mg tablet 10 mg PO DAILY 11/19/23 11/19/23 citalopram 10 mg tablet 10 mg PO DAILY 11/19/23 11/19/23 donepezil 10 mg tablet 10 mg PO DAILY 11/19/23 11/19/23 Allergies Allergy/AdvReac Type Severity Reaction Status Date / Time No Known Allergies Allergy Verified 11/19/23 10:30 Review of Systems 2 Const: Reports: fatigue; Denies: fever(s), chills, body aches or change in appetite Eyes: Denies: blurry vision or eye discomfort ENMT: Denies: throat pain or dental pain Card: Denies: chest pain Resp: Denies: dyspnea GI: Denies: abdominal pain, nausea, vomiting or diarrhea : Denies: dysuria Musc: Denies: neck pain or back pain Skin/Breast: Denies: rash Neuro: Denies: headache(s) PFSH ED 2 PFSH: Medical History Numbness and tingling in both hands Weakness Family History Father Cancer Lung disease Brother Cancer Dementia Mother Dementia Grandfather Dementia Denies family history of Diabetes CAD (coronary artery disease) Clotting disorder Chronic kidney disease (CKD) Suicide Anesthesia complication Bleeding disorder Stroke Social History (System 05/18/21 @ 10:10 by Mirlande Garrett) Alcohol intake: never Substance/Drug Use: never Physical Exam 2 Const: COMMON NORMALS: no acute distress, patient oriented x3 and healthy appearing HENMT: COMMON NORMALS: normocephalic and atraumatic HEAD & SCALP: n ormocephalic and atraumatic Eye: COMMON NORMALS: Equal, round and reactive pupils present and EOMs intact bilaterally PUPIL: Yes Equal, round and reactive pupils present Neck/C-Spine: COMMON NORMALS: full ROM and supple Chest: COMMONS NORMALS: normal inspection of the chest and normal palpation of entire chest wall Resp: COMMON NORMALS: normal respiratory effort, No retractions, No use of accessory muscles and clear to auscultation bilaterally AUSCULTATION: clear to auscultation bilaterally Cardio: COMMON NORMALS: regular rhythm and No murmurs present (Cardio) R ATE: bradycardic RHYTHM: regular rhythm GI: COMMON NORMALS: Normal to inspection, nondistended, normoactive bowel sounds present, Soft to palpation, non-tender and no masses PALPATION: Yes Soft to palpation Extremity: COMMON NORMALS: normal to inspection and full ROM Neuro: COMMON NORMALS: patient oriented x3, moves all extremities and no focal motor deficits Psych: COMMON NORMALS: mental status grossly normal, Normal thought process present and cooperative THOUGHT PROCESS: Normal thought process present Skin: COMMON NORMALS: no rashes or lesions noted and no wounds GENERAL SKIN EXAM: no rashes or lesions noted Course 2 Vital Signs: Vital signs: Vital Signs Temperature 97.9 F 11/19/23 10:31 Pulse Rate 44 L 11/19/23 14:36 Respiratory Rate 16 11/19/23 14:36 Blood Pressure 147/49 11/19/23 14:36 Pulse Oximetry 100 11/19/23 14:36 Oxygen Delivery Me thod Room Air 11/19/23 13:15 MDM - General Adult Medical Decision Making Patient presents here with paresthesias that are mild and her neuroexam here is benign she has no signs of a stroke blood work head CT is normal she stable for discharge follow-up with PCP return if worsening. Medical Records I reviewed the patient's medical records. Lab Data I reviewed the patient's lab results. 11/19/23 13:20 11/19/23 11:[address] 11/19/23 11:19 IMPRESSION: 1. No acute intracranial hemorrhage or edema. 2. Mild atrophy and small vessel disease which has progressed since 2020. 3. Remote lacunar infarct LEFT insular ribbon. Laboratory Results WBC 7.08 10^3/uL (3.29-11.43) 11/19/23 13:20 RBC 4.39 10^6/uL (3.85-5.65) 11/19/23 13:20 Hgb 13.60 g/dL (11.27-16.99) 11/19/23 13:20 Hct 41.9 % (36-47) 11/19/23 13:20 MCV 95.4 fl (85-98) 11/19/23 13:20 MCH 31.0 pg (27-33) 11/19/23 13:20 MCHC 32.5 g/dL (30-55) 11/19/23 13:20 RDW 12.4 % (12.1-15.1) 11/19/23 13:20 Plt Count 166 10^3/cmm (157-399) 11/19/23 13:20 MPV 10.9 fL (7.4-10.4) H 11/19/23 13:20 Neut % (Auto) 63.6 % 11/19/23 13:20 Lymph % (Auto) 29.2 % 11/19/23 13:20 Banks % (Auto) 6.1 % 11/19/23 13:20 Eos % (Auto) 0.3 % 11/19/23 13:20 Baso % (Auto) 0.7 % 11/19/23 13:20 Neut # (Auto) 4.50 10^3/uL (1.8-7.7) 11/19/23 13:20 Lymph # (Auto) 2.1 10^3/uL (0.8-4.8) 11/19/23 13:20 Banks # (Auto) 0.4 10^3/uL (0.2-0.9) 11/19/23 13:20 Eos # (Auto) 0.0 10^3/uL (0.0-0.8) 11/19/23 13:20 Baso # (Auto) 0.1 10^3/uL (0.0-0.1) 11/19/23 13:20 Nucleated RBC % (auto) 0 % 11/19/23 13:20 Nucleated RBCs # 0.0 /100WBC 11/19/23 13:20 Sodium 139 mmol/L (136-145) 11/19/23 11:45 Potassium 4.5 mmol/L (3.5-5.1) 11/19/23 11:45 Chloride 103 mmol/L (98-107) 11/19/23 11:45 Carbon Dioxide 22 mmol/L (22-29) 11/19/23 11:45 Anion Gap 18.5 (5-19) 11/19/23 11:45 BUN 13 mg/dL (8-23) 11/19/23 11:45 Creatinine 0.9 mg/dL (0.5-0.9) 11/19/23 11:45 GFR Calculation Not Reportable 11/19/23 11:45 Glucose 93 mg/dL (65-115) 11/19/23 11:45 Calculated Osmolality 288 mOsm/kg (285-295) 11/19/23 11:45 Calcium 9.4 mg/dL (8.5-10.5) 11/19/23 11:45 Total Bilirubin 0.6 mg/dL (0.15-1.2) 11/19/23 11:45 AST 25 U/L (0-32) 11/19/23 11:45 ALT 14 U/L (0-33) 11/19/23 11:45 Alkaline Phosphatase 105 U/L (35-105) 11/19/23 11:45 Total Protein 7.0 g/dL (6.6-8.7) 11/19/23 11:45 Albumin 4.2 g/dL (3.5-5.2) 11/19/23 11:45 Globulin 2.8 g/dL (1.3-4.6) 11/19/23 11:45 TSH 6.96 uIU/mL (0.27-4.20) H 11/19/23 11:45 SARS-CoV-2 Ag (Rapid) Negative (Negative) 11/19/23 13:30 All radiology interpretation(s) finalized by discharge EKG Data EKG 1: I personally reviewed and interpreted this EKG as follows: EKG interpretation date: 11/19/23 EKG interpretation time: 13:13 Interpretation: sinus marleni hr [address] elevation qrs 90 qtc 437 Computer generated interpretation: Head CT 11/19/23 11:19 IMPRESSION: 1. No acute intracranial hemorrhage or edema. 2. Mild atrophy and small vessel disease which has progressed since 2020. 3. Remote lacunar infarct LEFT insular ribbon. Discharge Plan Discharge Patient Disposition: Home Clinical Impression: Paresthesia Condition: Stable Prescriptions: No Action Caltrate 600 plus D 600 mg (1,500 mg)-800 unit tablet,chewable 1 tab PO DAILY cyanocobalamin (vitamin B-12) 100 mcg tablet 100 mcg PO DAILY levothyroxine 50 mcg tablet 25 mcg PO QAM atorvastatin 10 mg tablet 10 mg PO DAILY citalopram 10 mg tablet 10 mg PO DAILY donepezil 10 mg tablet 10 mg PO DAILY alendronate 70 mg tablet 70 mg PO Q7D Discharge Orders: Discharge ED (Routine); Ordered 11/19/23 Ordered By: Tamra Lieberman Referrals: Justin Jeter DO [Primary Care Provider] - 4-7 days Discharge Diet: Advance as tolerated Discharge Activity: Resume usual activity Patient Instructions: Paresthesia (ED) Coding Level of Care Code 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
[2023-11-19 12:00] VITALS: PULSE 51; O2SAT 100
[2023-11-19 12:26] LABS: Alanine Aminotransferase 14 U/L (0-33); Albumin Level 4.2 g/dL (3.5-5.2); Alkaline Phosphatase 105 U/L (35-105); Blood Urea Nitrogen 13 mg/dL (8-23); Calcium 9.4 mg/dL (8.5-10.5); Carbon Dioxide 22 mmol/L (22-29); Chloride 103 mmol/L (98-107); Creatinine Clr Calc Pharmacy 39.9237; Globulin 2.8 g/dL (1.3-4.6); Glucose 93 mg/dL (65-115); Osmolality Calculated 288 mOsm/kg (285-295); Sodium 139 mmol/L (136-145); Thyroid Stimulating Hormone 6.96 uIU/mL (0.27-4.20); Total Bilirubin 0.6 mg/dL (0.15-1.2)
[2023-11-19 12:42] LABS: Anion Gap 18.5 (5-19); Aspartate Amino Transferase 25 U/L (0-32); Potassium 4.5 mmol/L (3.5-5.1)
--- NOTE | 2023-11-19 13:01 | PC.PHAR ---
Pt states is not taking Valacyclovir 1gm.
[2023-11-19 13:15] VITALS: BP 128/56; PULSE 46; O2SAT 100
[2023-11-19 13:26] LABS: Basophils # 0.1 10^3/uL (0.0-0.1); Basophils % 0.7 %; Eosinophils % 0.3 %; Hematocrit 41.9 % (36-47); Lymphocytes # 2.1 10^3/uL (0.8-4.8); Lymphocytes % 29.2 %; Mean Corpuscular HGB Conc 32.5 g/dL (30-55); Mean Corpuscular Volume 95.4 fl (85-98); Mean Platelet Volume 10.9 fL (7.4-10.4); Monocytes # 0.4 10^3/uL (0.2-0.9); Monocytes % 6.1 %; Neutrophils % 63.6 %; Nucleated Red Blood Cells % 0 %; Platelet Count 166 10^3/cmm (157-399); Red Blood Count 4.39 10^6/uL (3.85-5.65); Red Cell Distribution Width 12.4 % (12.1-15.1); White Blood Count 7.08 10^3/uL (3.29-11.43)
[2023-11-19] MEDS: sodium chloride 0.9% 500 ML 999 ML IV (13:32)
[2023-11-19 13:54] LABS: SARS Covid-2 Antigen Negative (Negative)
[2023-11-19 14:36] VITALS: BP 147/49; PULSE 44; RESP 16; O2SAT 100
== END 2023-11-19 14:37 | disposition home or self-care (01) ==
PROVIDERS: Emergency Provider Emergency Medicine; PCP Electrodiagnostic Medicine
DX: R20.2 Paresthesia of skin (principal); R00.1 Bradycardia, unspecified; Z11.52 Encounter for screening for COVID-19
CPT/HCPCS: 36415; 70450; 80053; 84443; 85025; 87426; 93005; 99284; J7040

== ENCOUNTER → 2024-08-06 11:10 | Outpatient (BNVA) | payer MEDICARE, SELFPAY | PROVIDERS: PCP Electrodiagnostic Medicine; Visit Provider Internal Medicine Cardiovascular Disease | DX: R07.9 Chest pain, unspecified (principal) | CPT/HCPCS: 93005 ==

== ENCOUNTER 2024-08-06 11:44 | Outpatient (CLI) | payer MEDICARE, SELFPAY ==
--- NOTE | 2024-08-06 11:54 | XR_ITS ---
WS: [id number] XR chest 2V* [id number] REASON FOR EXAM: SINUS BRADYCARDIA FINDINGS: The chest is unchanged compared to 10/08/2020. Mild tortuosity of the thoracic aorta and normal heart size. Calcified granulomatous disease bilaterally. No acute pulmonary parenchymal or pleural abnormality. Moderate dorsal kyphosis centered on mild wedge-shaped compression deformity of T9. Mild levoscoliosis of the thoracic spine. XR/XR chest 2V* [id number] IMPRESSION: Chest stable with no significant abnormality.
== END 2024-08-06 11:45 ==
PROVIDERS: PCP Electrodiagnostic Medicine; Visit Provider Nurse Practitioner
DX: R00.1 Bradycardia, unspecified (principal); R06.09 Other forms of dyspnea; F03.90 Unspecified dementia, unspecified severity, without behavioral disturbance, psychotic disturbance, mood disturbance, and anxiety; R20.0 Anesthesia of skin; R20.2 Paresthesia of skin; R55 Syncope and collapse
CPT/HCPCS: 71046; 99204

== ENCOUNTER 2024-08-25 07:31 | Emergency (ER) | payer MEDICARE, SELFPAY ==
[2024-08-25 07:36] VITALS: BP 129/48; PULSE 51; RESP 14; TEMP 36.6; O2SAT 100
--- NOTE | 2024-08-25 07:46 | ECG_ITS ---
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
--- NOTE | 2024-08-25 08:10 | W.ED.RECABL ---
HPI - Recheck/Abnormal Lab/Rx General: Chief Complaint: Recheck/Abnormal Lab/Rx Stated Complaint: heart monitor stopped (sent by alison) Time Seen by Provider: 08/25/24 07:36 History of Present Illness: Chief complaint is called and told to come here because her heart stopped. Patient states that she has had some chronic tingling in the fingers of her right hand that has been going on for probably a year or longer they estimate. No new symptoms. No chest pain or shortness of breath. No syncopal events. History is obtained from the patient and the . The patient tells me that she has some memory problems and asked some of the questions from her . They were called this morning and told that the heart monitor that she is wearing said that her heart stop for 16 seconds so they were told to come here. She states she feels completely fine and she was unaware of the event. They were awoken by a phone call this morning. Related Data Home Medications ?Medication ?Instructions ?Recorded ?Confirmed donepezil 10 mg tablet 10 mg PO DAILY 11/19/23 08/25/24 levothyroxine 50 mcg tablet 50 mcg PO DAILY 08/06/24 08/25/24 (Unithroid) multivitamin (Daily Multi-Vitamin 1 tab PO DAILY 08/06/24 08/25/24 tablet) alendronate 70 mg tablet 70 mg PO Q7D 08/25/24 08/25/24 citalopram 10 mg tablet 10 mg PO DAILY 08/25/24 08/25/24 Allergies Allergy/AdvReac Type Severity Reaction Status Date / Time No Known Allergies Allergy Verified 08/06/24 10:39 PFS ED PFSH: Medical History Numbness and tingling in both hands Weakness Family History Father Cancer Lung disease Brother Cancer Dementia Mother Dementia Grandfather Dementia Denies family history of Diabetes CAD (coronary artery disease) Clotting disorder Chronic kidney disease (CKD) Suicide Anesthesia complication Bleeding disorder Stroke Social History Smoking and tobacco/nicotine status: never used tobacco/nicotine Alcohol intake: never Substance/Drug Use: never Physical Exam Narrative: EXAM NARRATIVE: Patient is alert and oriented to person and place. She has some short-term memory deficits which is baseline according to family. Neck is supple. Pupils symmetric. Heart regular rhythm. Lung sounds are clear. Abdomen soft nontender. Extremities warm well-perfused. No calf tenderness or pitting edema. No drift in the arms or legs. She tells me she has intact sensation to touch to her fingers. She has intact radial pulse on the right hand and her fingers appear warm well-perfused. Course Vital Signs: Vital signs: Vital Signs Temperature 97.8 F 08/25/24 07:36 Pulse Rate 56 L 08/25/24 12:02 Respiratory Rate 16 08/25/24 11:09 Blood Pressure 135/49 08/25/24 12:02 Pulse Oximetry 100 08/25/24 12:02 MDM - Recheck/Abnormal Lab/Rx Medical Decision Making Patient presents with asymptomatic episode of 16-second pause of her heart during the night according to report given over the phone and into the . Unclear why the patient has the heart monitor. The and the patient states that is because of the tingling in her fingertips that she has had for more than a year. She denies any other symptoms. She denies any chest discomfort or shortness of breath exertional symptoms, lightheadedness or passing out, palpitations, vomiting diarrhea, fever or recent illness. I have paged cardiology to obtain further information and plan. I ordered CBC CMP to check her potassium and kidney function and hemoglobin. and patient cannot tell me what medications she is on. The available medication list does not indicate a clear cause that would contribute to bradycardia or heart block. EKG ordered and to my interpretation shows sinus bradycardia with a rate of 47 bpm. CBC CMP did not show significant abnormality. I consulted with Dr. Zurita who recommends transfer to facility with capability of placing permanent pacemaker. I placed pads on patient and discussed with the and he requested going to [facility] if they have bed availability. I have called and talked to the [facility] coordinator and they anticipate ability to treat the posterior to them and agree with plan. Awaiting accepting physician. Patient has been expressed understanding regarding risk of transfer and limits of ED evaluation. On review of the patient Holter monitor she had episode of significant sinus bradycardia followed by long pauses with a couple P waves without associated QRS followed by sinus bradycardia. pt accepted in transfer to [facility] by Dr. Dillard via [facility]. Lab Data 08/25/24 08:07 08/25/24 08:07 Laboratory Results WBC 6.35 10^3/uL (3.29-11.43) 08/25/24 08:07 RBC 4.28 10^6/uL (3.85-5.65) 08/25/24 08:07 Hgb 13.20 g/dL (11.27-16.99) 08/25/24 08:07 Hct 41.6 % (36-47) 08/25/24 08:07 MCV 97.2 fl (85-98) 08/25/24 08:07 MCH 30.8 pg (27-33) 08/25/24 08:07 MCHC 31.7 g/dL (30-55) 08/25/24 08:07 RDW 12.2 % (12.1-15.1) 08/25/24 08:07 Plt Count 179 10^3/cmm (157-399) 08/25/24 08:07 MPV 9.7 fL (7.4-10.4) 08/25/24 08:07 Neut % (Auto) 71.1 % 08/25/24 08:07 Lymph % (Auto) 19.8 % 08/25/24 08:07 Pettis % (Auto) 6.8 % 08/25/24 08:07 Eos % (Auto) 0.9 % 08/25/24 08:07 Baso % (Auto) 1.1 % 08/25/24 08:07 Neut # (Auto) 4.51 10^3/uL (1.8-7.7) 08/25/24 08:07 Lymph # (Auto) 1.3 10^3/uL (0.8-4.8) 08/25/24 08:07 Pettis # (Auto) 0.4 10^3/uL (0.2-0.9) 08/25/24 08:07 Eos # (Auto) 0.1 10^3/uL (0.0-0.8) 08/25/24 08:07 Baso # (Auto) 0.1 10^3/uL (0.0-0.1) 08/25/24 08:07 Nucleated RBC % (auto) 0 % 08/25/24 08:07 Nucleated RBCs # 0.0 /100WBC 08/25/24 08:07 Sodium 141 mmol/L (136-145) 08/25/24 08:07 Potassium 4.3 mmol/L (3.5-5.1) 08/25/24 08:07 Chloride 106 mmol/L (98-107) 08/25/24 08:07 Carbon Dioxide 26 mmol/L (22-29) 08/25/24 08:07 Anion Gap 13.3 (5-19) 08/25/24 08:07 BUN 20 mg/dL (8-23) 08/25/24 08:07 Creatinine 0.8 mg/dL (0.5-0.9) 08/25/24 08:07 GFR Calculation Not Reportable 08/25/24 08:07 Glucose 98 mg/dL (65-115) 08/25/24 08:07 Calculated Osmolality 295 mOsm/kg (285-295) 08/25/24 08:07 Calcium 9.1 mg/dL (8.5-10.5) 08/25/24 08:07 Total Bilirubin 0.4 mg/dL (0.15-1.2) 08/25/24 08:07 AST 18 U/L (0-32) 08/25/24 08:07 ALT 11 U/L (0-33) 08/25/24 08:07 Alkaline Phosphatase 96 U/L (35-105) 08/25/24 08:07 Total Protein 6.5 g/dL (6.6-8.7) L 08/25/24 08:07 Albumin 3.9 g/dL (3.5-5.2) 08/25/24 08:07 Globulin 2.6 g/dL (1.3-4.6) 08/25/24 08:07 All radiology interpretation(s) finalized by discharge Discharge Plan Discharge Patient Disposition: Xfer Short-Term Hosp Clinical Impression: Bradycardia Condition: Stable Referrals: Justin Jeter DO [Primary Care Provider, [facility]] Print Language: Djiboutian Coding Level of Care Code ED Front Office Medical Assistant for Parris Villalta
[2024-08-25 08:12] LABS: Basophils # 0.1 10^3/uL (0.0-0.1); Basophils % 1.1 %; Eosinophils # 0.1 10^3/uL (0.0-0.8); Eosinophils % 0.9 %; Hematocrit 41.6 % (36-47); Lymphocytes # 1.3 10^3/uL (0.8-4.8); Lymphocytes % 19.8 %; Mean Corpuscular HGB Conc 31.7 g/dL (30-55); Mean Corpuscular Hemoglobin 30.8 pg (27-33); Mean Corpuscular Volume 97.2 fl (85-98); Mean Platelet Volume 9.7 fL (7.4-10.4); Monocytes # 0.4 10^3/uL (0.2-0.9); Monocytes % 6.8 %; Neutrophils # 4.51 10^3/uL (1.8-7.7); Neutrophils % 71.1 %; Nucleated Red Blood Cells % 0 %; Platelet Count 179 10^3/cmm (157-399); Red Blood Count 4.28 10^6/uL (3.85-5.65); Red Cell Distribution Width 12.2 % (12.1-15.1); White Blood Count 6.35 10^3/uL (3.29-11.43)
[2024-08-25 08:29] LABS: Alanine Aminotransferase 11 U/L (0-33); Albumin Level 3.9 g/dL (3.5-5.2); Alkaline Phosphatase 96 U/L (35-105); Anion Gap 13.3 (5-19); Aspartate Amino Transferase 18 U/L (0-32); Blood Urea Nitrogen 20 mg/dL (8-23); Calcium 9.1 mg/dL (8.5-10.5); Carbon Dioxide 26 mmol/L (22-29); Chloride 106 mmol/L (98-107); Creatinine Clr Calc Pharmacy 45.3829; Globulin 2.6 g/dL (1.3-4.6); Glucose 98 mg/dL (65-115); Osmolality Calculated 295 mOsm/kg (285-295); Potassium 4.3 mmol/L (3.5-5.1); Sodium 141 mmol/L (136-145); Total Bilirubin 0.4 mg/dL (0.15-1.2); Total Protein 6.5 g/dL (6.6-8.7)
[2024-08-25 11:09] VITALS: BP 135/49; PULSE 52; RESP 16; O2SAT 98
[2024-08-25 12:02] VITALS: BP 135/49; PULSE 56; O2SAT 100
== END 2024-08-25 12:15 | disposition short-term general hospital (02) ==
PROVIDERS: Emergency Provider Emergency Medicine; PCP Electrodiagnostic Medicine
DX: R00.1 Bradycardia, unspecified (principal); Z79.899 Other long term (current) drug therapy; Z79.890 Hormone replacement therapy
CPT/HCPCS: 12345; 36415; 80053; 85025; 93005; 99285

== ENCOUNTER 2024-08-29 13:21 | Emergency (ER) | payer MEDICARE, SELFPAY ==
[2024-08-29 13:25] VITALS: BP 148/52; PULSE 61; RESP 14; TEMP 36.7; O2SAT 100; BMI 843.6
--- NOTE | 2024-08-29 14:07 | XRR_ITS ---
PROCEDURE INFORMATION: Exam: XR Chest Exam date and time: 08/29/2024 2:38 PM Age: 78 years old Clinical indication: Other: Near syncope TECHNIQUE: Imaging protocol: Radiologic exam of the chest. Views: 1 view. COMPARISON: CR XR chest 2V* [id number] 08/06/2024 12:02 PM FINDINGS: Tubes, catheters and devices: There is intact dual lead pacemaker hardware. Lungs: Lungs appear free of acute disease. Limited inspiration. Pleural spaces: Unremarkable. No pleural effusion. No pneumothorax. Heart/Mediastinum: Unremarkable. No cardiomegaly. Bones/joints: Unremarkable. XR/XR chest 1V portable [id number] IMPRESSION: No acute findings.
--- NOTE | 2024-08-29 14:08 | ECG_ITS ---
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 Measurements Intervals [place] Rate: 61 P: 253 ME: 220 QRS: 20 QRSD: 89 T: 74 QT: 408 QTc: 414 Interpretive Statements ELECTRONIC ATRIAL PACEMAKER Compared to ECG 08/25/2024 07:46:33 Sinus bradycardia no longer present Electronically Signed On 08-31-2024 11:39:29 CDT by Chris Zurita M.D. [email or web address]
[2024-08-29 14:22] VITALS: BP 139/58; BP 151/60; BP 154/55
[2024-08-29 14:25] VITALS: O2SAT 99
[2024-08-29 14:27] LABS: Bilirubin Urine Negative (Negative); Blood Urine Negative (Negative); Glucose Urine UA Negative (Normal); Ketones Urine Trace (Negative); Leukocyte Esterase Urine Negative (Negative); Nitrate Urine Negative (Negative); Protein Urine Negative (Negative); Specific Gravity, Urine 1.009 (1.005-1.030); Urine Appearance Clear (CLEAR); Urine Color Yellow (Yellow); Urobilinogen Urine 0.2 mg/dL (Negative)
[2024-08-29 14:30] LABS: Add Urine Microscopic? YES; Bacteria Urine None Seen /hpf; RBC Urine 0-2 /hpf (0-2); Squamous Epithelial Cell Urine 0-5 /hpf (0-5); WBC Urine 0-5 /hpf (0-5)
[2024-08-29 14:38] LABS: Basophils # 0.1 10^3/uL (0.0-0.1); Basophils % 0.5 %; Eosinophils % 0.4 %; Hematocrit 41.9 % (36-47); Lymphocytes # 1.7 10^3/uL (0.8-4.8); Lymphocytes % 17.5 %; Mean Corpuscular HGB Conc 32.5 g/dL (30-55); Mean Corpuscular Hemoglobin 30.6 pg (27-33); Mean Corpuscular Volume 94.4 fl (85-98); Mean Platelet Volume 9.8 fL (7.4-10.4); Monocytes # 0.7 10^3/uL (0.2-0.9); Monocytes % 6.8 %; Neutrophils # 7.35 10^3/uL (1.8-7.7); Neutrophils % 74.6 %; Nucleated Red Blood Cells % 0 %; Platelet Count 169 10^3/cmm (157-399); Red Blood Count 4.44 10^6/uL (3.85-5.65); Red Cell Distribution Width 11.9 % (12.1-15.1); White Blood Count 9.85 10^3/uL (3.29-11.43)
[2024-08-29 14:53] LABS: Troponin(5th) Baseline 14 ng/L (0-10)
[2024-08-29 15:08] LABS: Anion Gap 15.6 (5-19); Blood Urea Nitrogen 16 mg/dL (8-23); Calcium 9.2 mg/dL (8.5-10.5); Carbon Dioxide 24 mmol/L (22-29); Chloride 102 mmol/L (98-107); Creatinine Clr Calc Pharmacy 48.1941; Glucose 94 mg/dL (65-115); NT Pro B Type Natriuretic Pept 183 pg/mL (0-450); Osmolality Calculated 287 mOsm/kg (285-295); Potassium 3.6 mmol/L (3.5-5.1); Sodium 138 mmol/L (136-145)
[2024-08-29 16:34] VITALS: BP 121/71; O2SAT 100
--- NOTE | 2024-08-29 16:39 | W.ED.WEAKNES ---
HPI - Weakness General: Chief complaint: Weakness Stated complaint: WEAKNESS Time Seen by Provider: 08/29/24 13:27 History of Present Illness: This patient is an 78-year-old white female brought in by her for evaluation of generalized weakness and faint feeling. states that when they were in [facility] this morning around 11:15 AM she told him that she was feeling faint. He took her home and she continued to have the symptoms. She denied having any chest pain or shortness of breath. She did just have a pacemaker placed on in [facility]. She is feeling back to normal now. Review of Systems General: Reports: 10 or more systems reviewed and unremarkable except in HPI and below Card: Reports: lightheadedness and pre-syncope [facility] ED PFSH: Medical History Numbness and tingling in both hands Weakness Family History Father Cancer Lung disease Brother Cancer Dementia Mother Dementia Grandfather Dementia Denies family history of Diabetes CAD (coronary artery disease) Clotting disorder Chronic kidney disease (CKD) Suicide Anesthesia complication Bleeding disorder Stroke Social History Smoking and tobacco/nicotine status: never used tobacco/nicotine Alcohol intake: never Substance/Drug Use: never Physical Exam Const: COMMON NORMALS: no acute distress, patient oriented x3 and no limitations GENERAL APPEARANCE: cooperative and comfortable HENMT: COMMON NORMALS: normocephalic, atraumatic, Normal nasal mucous membranes and turbinates present, moist oral mucous membranes and oropharynx normal HEAD & SCALP: normal to inspection, normocephalic and atraumatic FACE & SINUS: normal facial exam NOSE: Normal nasal mucous membranes and turbinates present Eye: COMMON NORMALS: Equal, round and reactive pupils present, EOMs intact bilaterally and conjunctivae normal GENERAL EYE: appearance normal, both eyes and all related structures CONJUNCTIVA: Yes conjunctivae normal PUPIL: Yes Equal, round and reactive pupils present Neck/C-Spine: COMMON NORMALS: supple and no JVD Chest: COMMONS NORMALS: normal inspection of the chest Resp: COMMON NORMALS: normal respiratory effort and clear to auscultation bilaterally AUSCULTATION: clear to auscultation bilaterally Cardio: COMMON NORMALS: no JVD, regular rate, regular rhythm, No gallops present (Cardio), No murmurs present (Cardio) and No rub (Cardio) RATE: regular rate RHYTHM: regular rhythm GI: COMMON NORMALS: Normal to inspection, nondistended, normoactive bowel sounds present, Soft to palpation and non-tender AUSCULTATION: Yes normoactive bowel sounds PALPATION: Yes Soft to palpation : COMMON NORMALS: Yes no CVA tenderness BLADDER/KIDNEY EXAM: Yes no CVA tenderness Back/Pelvis: COMMON NORMALS: no CVA tenderness and thoracic and lumbar spine normal to inspection Extremity: COMMON NORMALS: normal to inspection Neuro: COMMON NORMALS: patient oriented x3 and CN's II-XII intact bilaterally Psych: COMMON NORMALS: mental status grossly normal, Normal thought process present and cooperative THOUGHT PROCESS: Normal thought process present Skin: COMMON NORMALS: no rashes or lesions noted, turgor normal and no jaundice GENERAL SKIN EXAM: no rashes or lesions noted and turgor normal Course Vital Signs: Vital signs: Vital Signs Temperature 98.1 F 08/29/24 13:25 Pulse Rate 61 08/29/24 13:25 Respiratory Rate 14 08/29/24 13:25 Blood Pressure 121/71 08/29/24 16:34 Pulse Oximetry 100 08/29/24 16:34 Oxygen Delivery Me thod Room Air 08/29/24 16:34 MDM - Weakness Medical Decision Making EKG revealed normal sinus rhythm with no ST segment abnormalities. Chest x-ray is normal. CBC and BMP normal. Urinalysis normal. BNP was 183. Troponin 14. Patient remained asymptomatic throughout the ER stay. We did interrogate the pacemaker. There were no abnormalities today based on that evaluation. All the results were discussed with the patient and her . Not sure what is causing her symptoms today. Recommended she push fluids and get some rest. Follow-up with primary care physician within the next couple of days for recheck. She was discharged in stable condition. Lab Data 08/29/24 14:28 08/29/24 14:28 Radiology Impressions Chest X-Ray 08/29/24 14:07 IMPRESSION: No acute findings. Laboratory Results WBC 9.85 10^3/uL (3.29-11.43) 08/29/24 14:28 RBC 4.44 10^6/uL (3.85-5.65) 08/29/24 14:28 Hgb 13.60 g/dL (11.27-16.99) 08/29/24 14:28 Hct 41.9 % (36-47) 08/29/24 14:28 MCV 94.4 fl (85-98) 08/29/24 14:28 MCH 30.6 pg (27-33) 08/29/24 14:28 MCHC 32.5 g/dL (30-55) 08/29/24 14:28 RDW 11.9 % (12.1-15.1) L 08/29/24 14:28 Plt Count 169 10^3/cmm (157-399) 08/29/24 14: MPV 9.8 fL (7.4-10.4) 08/29/24 14:28 Neut % (Auto) 74.6 % 08/29/24 14:28 Lymph % (Auto) 17.5 % 08/29/24 14:28 Ford % (Auto) 6.8 % 08/29/24 14:28 Eos % (Auto) 0.4 % 08/29/24 14:28 Baso % (Auto) 0.5 % 08/29/24 14:28 Neut # (Auto) 7.35 10^3/uL (1.8-7.7) 08/29/24 14:28 Lymph # (Auto) 1.7 10^3/uL (0.8-4.8) 08/29/24 14:28 Ford # (Auto) 0.7 10^3/uL (0.2-0.9) 08/29/24 14:28 Eos # (Auto) 0.0 10^3/uL (0.0-0.8) 08/29/24 14:28 Baso # (Auto) 0.1 10^3/uL (0.0-0.1) 08/29/24 14: Nucleated RBC % (auto) 0 % 08/29/24 14: Nucleated RBCs # 0.0 /100WBC 08/29/24 14:28 Sodium 138 mmol/L (136-145) 08/29/24 14:28 Potassium 3.6 mmol/L (3.5-5.1) 08/29/24 14:28 Chloride 102 mmol/L (98-107) 08/29/24 14:28 Carbon Dioxide 24 mmol/L (22-29) 08/29/24 14:28 Anion Gap 15.6 (5-19) 08/29/24 14:28 BUN 16 mg/dL (8-23) 08/29/24 14:28 Creatinine 0.8 mg/dL (0.5-0.9) 08/29/24 14:28 GFR Calculation Not Reportable 08/29/24 14:28 Glucose 94 mg/dL (65-115) 08/29/24 14:28 Calculated Osmolality 287 mOsm/kg (285-295) 08/29/24 14:28 Calcium 9.2 mg/dL (8.5-10.5) 08/29/24 14:28 Troponin T Baseline 14 ng/L (0-10) H 08/29/24 14:28 NT-Pro-B Natriuret Pep 183 pg/mL (0-450) 08/29/24 14:28 Urine Color Yellow (Yellow) 08/29/24 14:15 Urine Appearance Clear (CLEAR) 08/29/24 14:15 Urine pH 8.0 (5-7) A 08/29/24 14:15 Ur Specific [place] 1.009 (1.005-1.030) 08/29/24 14:15 Urine Protein Negative (Negative) 08/29/24 14:15 Urine Glucose (UA) Negative (Normal) 08/29/24 14:15 Urine Ketones Trace (Negative) 08/29/24 14:15 Urine Blood Negative (Negative) 08/29/24 14:15 Urine Nitrate Negative (Negative) 08/29/24 14:15 Urine Bilirubin Negative (Negative) 08/29/24 14:15 Urine Urobilinogen 0.2 mg/dL (Negative) 08/29/24 14:15 Ur Leukocyte Esterase Negative (Negative) 08/29/24 14:15 Urine RBC 0-2 /hpf (0-2) 08/29/24 14:15 Urine WBC 0-5 /hpf (0-5) 08/29/24 14:15 Ur Squamous Epith Cells 0-5 /hpf (0-5) 08/29/24 14:15 Amorphous Sediment Not Reportable 08/29/24 14:15 Urine Bacteria None seen /hpf (NONE) 08/29/24 14:15 Hyaline Casts 0.40 /lpf 08/29/24 14:15 All radiology interpretation(s) finalized by discharge Discharge Plan Discharge Patient Disposition: Home Clinical Impression: Near syncope Condition: Stable Prescriptions: No Action multivitamin [Daily Multi-Vitamin] Tablet 1 tab PO DAILY levothyroxine [Unithroid] 50 mcg tablet 50 mcg PO DAILY donepezil 10 mg tablet 10 mg PO DAILY alendronate 70 mg tablet 70 mg PO Q7D citalopram 10 mg tablet 10 mg PO DAILY Discharge Orders: Discharge ED (Routine); Ordered 08/29/24 Ordered By: Дмитрий Madrid Referrals: Justin Jeter DO [Primary Care Provider, Family Practice] Patient Instructions: Near Syncope (ED) Activity Restrictions/Additional Instructions: Push fluids and get some rest. Follow-up with primary care provider within the next several days for recheck. Print Language: Wolof Coding Level of Care Code ED Lead Massage Therapist for Chg Fwd Related Data Home Medications ?Medication ?Instructions ?Recorded ?Confirmed donepezil 10 mg tablet 10 mg PO DAILY 11/19/23 08/25/24 levothyroxine 50 mcg tablet 50 mcg PO DAILY 08/06/24 08/25/24 (Unithroid) multivitamin (Daily Multi-Vitamin 1 tab PO DAILY 08/06/24 08/25/24 tablet) alendronate 70 mg tablet 70 mg PO Q7D 08/25/24 08/25/24 citalopram 10 mg tablet 10 mg PO DAILY 08/25/24 08/25/24 Allergies Allergy/AdvReac Type Severity Reaction Status Date / Time No Known Allergies Allergy Verified 08/06/24 10:39
[2024-08-29 16:40] LABS: Troponin 5 2HR 11.43 ng/L (0-10)
[2024-08-29 16:45] LABS: Troponin 5 2HR Delta -2.57 ABS# (0-10)
[2024-08-29 16:55] VITALS: BP 121/71; PULSE 68; O2SAT 98
== END 2024-08-29 16:56 | disposition home or self-care (01) ==
PROVIDERS: Emergency Provider Emergency Medicine; PCP Electrodiagnostic Medicine
DX: R55 Syncope and collapse (principal)
CPT/HCPCS: 71045; 80048; 81001; 83880; 84484; 85025; 93005; 99285

== ENCOUNTER 2024-11-09 09:34 | Outpatient (CLI) | payer MEDICARE, SELFPAY | END 2024-11-09 09:35 | disposition home or self-care (01) | LOC: RAD 11-13 10:31 | PROVIDERS: PCP Electrodiagnostic Medicine; Visit Provider Nurse Practitioner | DX: R06.09 Other forms of dyspnea (principal); I45.9 Conduction disorder, unspecified; R00.1 Bradycardia, unspecified; I35.1 Nonrheumatic aortic (valve) insufficiency; E78.00 Pure hypercholesterolemia, unspecified; F03.90 Unspecified dementia, unspecified severity, without behavioral disturbance, psychotic disturbance, mood disturbance, and anxiety; R20.0 Anesthesia of skin; R20.2 Paresthesia of skin; Z95.0 Presence of cardiac pacemaker | CPT/HCPCS: 99214 ==

== ENCOUNTER 2025-02-24 15:27 | Emergency (ER) | payer MEDICARE, SELFPAY ==
--- OUTSIDE RECORDS SUMMARY | 2025-01-19 04:30 | XMS_ITS ---
Author Organization [email or web address] [facility] Address [address] [address] Care Team Providers Care Contact Lens Inspector Name Role Phone Dori Gomez Unavailable [phone] Allergies Allergen (clinical drug ingredient) Drug/Non Drug Allergy documented on EMR Reaction Allergy Type Onset Date Status Penicillin Unknown Drug Allergy Active Results Component Value Reference Range Notes COMPREHENSIVE METABOLIC PANE Selene ([id number]) Reviewed date:01/22/2025 06:21:25 PM Interpretation: Performing Lab:[place], [facility]-[id number] Yolanda Weiss, [id number] NeishaIdalia Pedraza MD Notes/Report: 0 0 0 0 GLUCOSE 94 65-99 mg/dL Fasting reference interval UREA NITROGEN (BUN) 11 7-25 mg/dL CREATININE 0.88 0.60-0.95 mg/dL EGFR 66 > OR = 60 mL/min/1.73m2 BUN/CREATININE RATIO SEE NOTE: 6-22 (calc) Not Reported: BUN and Creatinine are within reference range. SODIUM 140 135-146 mmol/L POTASSIUM 4.0 3.5-5.3 mmol/L CHLORIDE 102 98-110 mmol/L CARBON DIOXIDE 31 20-32 mmol/L CALCIUM 10.2 8.6-10.4 mg/dL PROTEIN, TOTAL 6.9 6.1-8.1 g/dL ALBUMIN 4.4 3.6-5.1 g/dL GLOBULIN 2.5 1.9-3.7 g/dL (calc) ALBUMIN/GLOBULIN RATIO 1.8 1.0-2.5 (calc) BILIRUBIN, TOTAL 0.7 0.2-1.2 mg/dL ALKALINE PHOSPHATASE 89 37-153 U/L AST 25 10-35 U/L ALT 15 6-29 U/L CBC (INCLUDES DIFF/PLT) (639 9) Reviewed date:01/22/2025 06:21:25 PM Interpretation: Performing Lab:[facility][id number] Yolanda Rascon, [id number] Mikhail Pedraza MD Notes/Report: 0 0 0 0 WHITE BLOOD CELL COUNT 7.3 3.8-10.8 Thousand/ uL RED BLOOD CELL COUNT 4.58 3.80-5.10 Million/uL HEMOGLOBIN 14.3 11.7-15.5 g/dL HEMATOCRIT 44.5 35.0-45.0 % MCV 97.2 80.0-100.0 fL MCH 31.2 27.0-33.0 pg MCHC 32.1 32.0-36.0 g/dL For adults, a slight decrease in the calculated MCHC value (in the range of 30 to 32 g/dL) is most likely not clinically significant; however, it should be interpreted with caution in correlation with other red cell parameters and the patient's clinical condition. RDW 12.7 11.0-15.0 % PLATELET COUNT 214 140-400 Thousand/uL MPV 10.6 7.5-12.5 fL ABSOLUTE NEUTROPHILS 5278 6882-2098 cells/uL ABSOLUTE LYMPHOCYTES 0542 808-9493 cells/uL ABSOLUTE MONOCYTES 343 200-950 cells/uL ABSOLUTE EOSINOPHILS 7 15-500 cells/uL ABSOLUTE BASOPHILS 29 0-200 cells/uL NEUTROPHILS 72.3 LYMPHOCYTES 22.5 MONOCYTES 4.7 EOSINOPHILS 0.1 BASOPHILS 0.4 URINALYSIS, COMPLETE W/REFLE X TO CULTURE (3020) Reviewed date:01/22/2025 06:21:25 PM Interpretation: Performing Lab:[facility]-[id number] Yolanda Rascon, [id number] Mikhail Pedraza MD Notes/Report: 0 0 0 0 0 0 0 0 COLOR DARK YELLOW YELLOW APPEARANCE CLEAR CLEAR SPECIFIC GRAVITY 1.021 1.001-1.035 PH 5.5 5.0-8.0 GLUCOSE NEGATIVE NEGATIVE BILIRUBIN NEGATIVE NEGATIVE KETONES NEGATIVE NEGATIVE OCCULT BLOOD NEGATIVE NEGATIVE PROTEIN NEGATIVE NEGATIVE NITRITE NEGATIVE NEGATIVE LEUKOCYTE ESTERASE NEGATIVE NEGATIVE WBC NONE SEEN < OR = 5 /HPF RBC NONE SEEN < OR = 2 /HPF SQUAMOUS EPITHELIAL CELLS 0-5 < OR = 5 /HPF BACTERIA NONE SEEN NONE SEEN /HPF CALCIUM OXALATE CRYSTALS MODERATE NONE OR FEW /HPF HYALINE CAST 0-5 NONE SEEN /LPF NOTE This urine was analyzed for the presence of WBC, RBC, bacteria, casts, and other formed elements. Only those elements seen were reported. REFLEXIVE URINE CULTURE NO C ULTURE INDICATED TSH W/REFLEX TO FT4 ([id number]) Reviewed date:01/22/2025 06:21:25 PM Interpretation: Performing Lab:[place], [facility]-[id number] Yolanda [facility], [id number] Mikhail Pedraza MD Notes/Report: 0 0 0 0 0 0 0 0 TSH W/REFLEX TO FT4 0.26 0.40-4.50 mIU/L T4, FREE 1.5 0.8-1.8 ng/dL REASON FOR VISIT depression, anxiety, dementia progression Medications Medication SIG (Take, Route, Frequency, Duration) Notes Start Date End Date Status Fexofenadine HCl 180 MG 1 tablet Swallow whole with water; do not take with fruit juices. Orally Once a day Not-Taking Multivitamin - 1 tablet Orally Once a day Active Latanoprost 0.005 % 1 drop into affected eye in the evening. OU Ophthalmic Once a day 01/21/2023 Active Fluticasone Propionate 50 MCG/ACT 1 spray in each nostril Nasally Once a day; Duration: 30 days 06/10/2022 Not-Taking Ezetimibe 10 MG 1 tablet Orally Once a day Active Alendronate Sodium 70 MG 1 tablet 30 min utes before the first food, beverage or medicine of the day with plain water Oral once weekly Active Donepezil HCl 5 mg 1 tab daily Active busPIRone HCl 5 MG 1 tablet Orally Once a day; Duration: 90 days 01/21/2025 07/20/2025 Active Levothyroxine Sodium 50 MCG TAKE 1 TABLET EVERY MORNING ON AN EMPTY STOMACH Orally Once a day Active Chlorzoxazone 500 MG 1/2-1tablet as need ed for neck spasm Orally Three times a day 04/05/2022 Not-Taking Citalopram Hydrobromide 20 MG 1 tablet Orally Once a day 10/05/2024 Active Social History Sex Assigned At : Social History Observation Description Sex Assigned At Female Vital Signs Blood pressure systolic 123 mm Hg 01/20/20 25 Blood pressure diastolic 68 mm Hg 025 Heart Rate 77 /min 01/19/2025 Temperature 98.2 degrees Fahrenheit 01/20/20 25 Oximetry 98 % 01/19/2025 Weight 117.0 lbs 01/19/2025 Weight-kg 53.07 kg 01/19/2025 Height 58.5 in 01/19/2025 Height-cm 148.59 cm 01/19/2025 BMI 24.03 kg/m2 01/19/2025 Encounters Encounter Location Date Provider Diagnosis [address] [address] 01/19/2025 Dori Gomez Hypothyroidism, unspecified type E03.9 ; Memory loss R41.3 ; Alzheimer's disease, unspecified G30.9 ; Depression, unspecified depression type F32.A and Decreased GFR R94.4 Assessments Encounter Date Diagnosis (ICD Code) Assessment Notes Treatment Notes Treatment Clinical Notes Section Notes 01/19/2025 Hypothyroidism, unspecified type (ICD-10 - E03.9) 01/19/2025 Memory loss (ICD-10 - R41.3) 01/19/2025 Alzheimer's disease, unspecified (ICD-10 - G30.9) 01/19/2025 Depression, unspecified depression type (ICD-10 - F32.A) 01/19/2025 Decreased GFR (ICD-10 - R94.4) Plan Of Treatment Medication Medication Name Sig Start Date Stop Date Notes busPIRone HCl 5 MG 1 tablet Orally Once a day; Duration: 90 days 01/21/2025 07/20/2025 Citalopram Hydrobromide 20 MG 1 tablet Orally Once a day 0 10/05/2024 Next Appt Details Provider Name:Dori Gomez , 03/03/2025 09:00:00 AM, [address] [place] [address], [id number], Provider Name:Dori Gomez , 04/07/2025 09:00:00 AM, [address] [place] [address], [id number], Provider Name:Dori Gomez , 04/14/2025 10:00:00 AM, [address] , [facility], [place], [address], Provider Name:Dori Gomez , 06/16/2025 09:00:00 AM, [address], [facility], [place], [address], Progress Notes * Ysabel JETER LDOB:[birth year] (79 yo F)Acc No.[id number]:01/19/2025 Patient: Ysabel GARCIA Provider: Will Gomez :1945 A ge:79 Y S ex:Female Date:01/19/2025 Address:[address] [place] [address], [id number] Subjective: * Chief Complaints: * 1 . Depression, anxiety, dementia progression. * HPI: T ransition of Care: pt here with concerns about dementia Has had trouble with memory for a for years now but has noticed it getting worse more recently Has trouble with peoples names she should remember and days of the week Reports she thinks she is having trouble with depression and anxiety, she had an episode yesterday at home unexpected she said --bn/skatesman. * ROS: G eneral / Constitutional: Patient denies c hange in appetite. A llergy / Immunology: Hives d enies. R espiratory: Patient complains of s hortness of breath with exertion?. C hest tightness d enies. P sychiatric: Patient complains of n ervous breakdown; had one 1 day ago unexpected. D ifficulty sleeping d enies. * Medical History: H ypothyroidism, Hyperlipidemia, Memory loss, Depression, DEXA 01/2022, Mammogram 01/2022, glaucoma . Dr Bullock. * Medications: T aking Multivitamin - Tablet 1 tablet Orally Once a day , Taking Latanoprost 0.005 % Solution 1 drop into affected eye in the evening. OU Ophthalmic Once a day , Taking Citalopram Hydrobromide 20 MG Tablet 1 tablet Orally Once a day , Taking Donepezil HCl 5 mg Tablet 1 tab daily , Taking Ezetimibe 10 MG Tablet 1 tablet Orally Once a day , Taking Alendronate Sodium 70 MG Tablet 1 tablet 30 minutes before the first food, beverage or medicine of the day with plain water Oral once weekly , Taking Levothyroxine Sodium 50 MCG Tablet TAKE 1 TABLET EVERY MORNING ON AN EMPTY STOMACH Orally Once a day , Not-Taking Fexofenadine HCl 180 MG Tablet 1 tablet Swallow whole with water; do not take with fruit juices. Orally Once a day , Not-Taking Chlorzoxazone 500 MG Tablet 1/2-1tablet as needed for neck spasm Orally Three times a day , Not-Taking Fluticasone Propionate 50 MCG/ACT Suspension 1 spray in each nostril Nasally Once a day , Discontinued Probiotic , Medication List reviewed and reconciled with the patient * Allergies: P enicillin. Objective: * Vitals: B P:123/68mm Hg, HR:77/min, Temp:98.2F, Oxygen sat %:98%, Wt:117.0lbs, Wt-k.07 kg, Ht: 58.5 in, Ht-cm: 148.59 cm, BMI:24.03Index, Body Surface Area: 1.48. Assessment: * Assessment: 1. H ypothyroidism, unspecified type - E03.9 (Primary) 2 . M amanda loss - R41.3 3 . A lzheimer's disease, unspecified - G30.9 4 . D epression, unspecified depression type - F32.A 5 . D ecreased GFR - R94.4 ? Plan: * Treatment: Value Reference Range T SH W/REFLEX TO FT4 0.26 L 0.40-4.50 - mIU/L * T 4, FREE 1.5 0.8-1.8 - ng/dL 2.?Memory loss?LAB: URINALYSIS, COMPLETE W/REFLEX TO CULTURE (7013) (Collection Date & Time - 01/19/2025 12:30PM)* Value Reference Range C OLOR DARK YELLOW YELLOW - * A PPEARANCE CLEAR CLEAR - * B ILIRUBIN NEGATIVE NEGATIVE - * K ETONES NEGATIVE NEGATIVE - * S PECIFIC GRAVITY 1.021 1.001-1.035 - * O CCULT BLOOD NEGATIVE NEGATIVE - * P H 5.5 5.0-8.0 - * P ROTEIN NEGATIVE NEGATIVE - * N ITRITE NEGATIVE NEGATIVE - * L EUKOCYTE ESTERASE NEGATIVE NEGATIVE - * W BC NONE SEEN < OR = 5 - /HPF * R BC NONE SEEN < OR = 2 - /HPF * S QUAMOUS EPITHELIAL CELLS 0-5 < OR = 5 - /HPF * B ACTERIA NONE SEEN NONE SEEN - /HPF * C ALCIUM OXALATE CRYSTALS MODERATE A NONE OR FEW - /H PF * H YALINE CAST 0-5 A NONE SEEN - /LPF * G LUCOSE NEGATIVE NEGATIVE - 3.?Depression, unspecified depression type? Continue Citalopram Hydrobromide Tablet, 20 MG, 1 tablet, Orally, Once a day;?Start busPIRone HCl Tablet, 5 MG, 1 tablet, Orally, Once a day, 90 days, 90 Tablet, Refills 1.??4.?Decreased GFR?LAB: COMPREHENSIVE METABOLIC PANEL (07534) (Collection Date & Time - 01/19/2025 12:30 PM)* Value Reference Range G LUCOSE 94 65-99 - mg/dL * U KYRIE NITROGEN (BUN) 11 7-25 - mg/dL * C REATININE 0.88 0.60-0.95 - mg/dL * B UN/CREATININE RATIO SEE NOTE: 6-22 - (calc) * S ODIUM 140 135-146 - mmol/L * P OTASSIUM 4.0 3.5-5.3 - mmol/L * C HLORIDE 102 98-110 - mmol/L * C ARBON DIOXIDE 31 20-32 - mmol/L * C ALCIUM 10.2 8.6-10.4 - mg/dL * P ROTEIN, TOTAL 6.9 6.1-8.1 - g/dL * A LBUMIN 4.4 3.6-5.1 - g/dL * G LOBULIN 2.5 1.9-3.7 - g/dL (calc ) * A LBUMIN/GLOBULIN RATIO 1.8 1.0-2.5 - (calc) * B ILIRUBIN, TOTAL 0.7 0.2-1.2 - mg/dL * A LKALINE PHOSPHATASE 89 37-153 - U/L * A ST 25 10-35 - U/L * A LT 15 6-29 - U/L * E GFR 66 > OR = 60 - mL/min/1 .73m2 ?LAB: CBC (INCLUDES DIFF/PLT) (6399) (Collection Date & Time - 01/19/2025 12:30 PM)* Value Reference Range W RODY BLOOD CELL COUNT 7.3 3.8-10.8 - Thousan d/uL * R ED BLOOD CELL COUNT 4.58 3.80-5.10 - Million/ uL * H EMOGLOBIN 14.3 11.7-15.5 - g/dL * H EMATOCRIT 44.5 35.0-45.0 - % * M CV 97.2 80.0-100.0 - fL * M CH 31.2 27.0-33.0 - pg * M CHC 32.1 32.0-36.0 - g/dL * R DW 12.7 11.0-15.0 - % * P LATELET COUNT 214 140-400 - Thousand/u L * N EUTROPHILS 72.3 - % * A BSOLUTE NEUTROPHILS 5278 5160-3353 - cells/uL * L YMPHOCYTES 22.5 - % * A BSOLUTE LYMPHOCYTES 7349 205-5175 - cells/uL * M ONOCYTES 4.7 - % * A BSOLUTE MONOCYTES 343 200-950 - cells/uL * E OSINOPHILS 0.1 - % * A BSOLUTE EOSINOPHILS 7 L 15-500 - cells/uL * B ASOPHILS 0.4 - % * A BSOLUTE BASOPHILS 29 0-200 - cells/uL * M PV 10.6 7.5-12.5 - fL * Billing Information: * Visit Code: * Procedure Codes: * Electronic signature of Abhay Gomez , [email or web address] on 02/24/2025 at 03:37 PM GEOSPATIAL ENGINEER Sign off status: Pending * Provider: Will Gomez Date: Generated for Verona amador/Jarrell/Sheridan on: 04/26/2024 03:37 PM GEOSPATIAL ENGINEER History and Physical Notes * HPI (History of Present Illness) Category Sub-Category Detail Notes Category Not es Transition of Care pt here with concerns about dementia Has had trouble with memory for a for years now but has noticed it getting worse more recently Has trouble with peoples names she should remember and days of the week Reports she thinks she is having trouble with depression and anxiety, she had an episode yesterday at home unexpected she said --bn/skatesman
[2025-02-24 15:34] VITALS: BP 155/59; PULSE 69; RESP 17; TEMP 36.5; O2SAT 100; BMI 22.2
--- NOTE | 2025-02-24 15:36 | XRR_ITS ---
PROCEDURE INFORMATION: Exam: XR Chest Exam date and time: 02/24/2025 3:38 PM Age: 79 years old Clinical indication: Pain; Dyspnea; On breathing; Prior surgery; Surgery date: 6+ months; Surgery type: Pacemaker; Additional info: SOB TECHNIQUE: Imaging protocol: Radiologic exam of the chest. Views: 1 view. COMPARISON: CR XR chest 1V portable [id number] 08/29/2024 2:38 PM FINDINGS: Tubes, catheters and devices: Left sided electronic pack with 2 pacing leads, similar to prior. Lungs: Right midlung zone possible calcific granuloma. Pleural spaces: Unremarkable. No pleural effusion. No pneumothorax. Heart/Mediastinum: Unremarkable. No cardiomegaly. Bones/joints: Unremarkable. XR/XR chest 1V portable [id number] IMPRESSION: No acute cardiopulmonary findings.
--- NOTE | 2025-02-24 15:37 | ECG_ITS ---
[facility] Date: 2025-02-24 Pat Name: Ysabel Jeter Department: Room: Gender: Female Science And Operations Officer: : 1945 Requested By: Tamra Lieberman Order Number: [id number] Reagan MD: Meme Araujo M.D. Measurements Intervals [place] Rate: 64 P: 67 MI: 186 QRS: -28 QRSD: 86 T: 47 QT: 428 QTc: 444 Interpretive Statements ELECTRONIC ATRIAL PACEMAKER BORDERLINE LEFT AXIS DEVIATION [QRS AXIS < -20] ABNORMAL RHYTHM ECG Compared to ECG 08/29/2024 13:26:08 No significant changes Electronically Signed On 02-24-2025 17:23:14 CRITICAL POWER INSTALL TECHNICIAN by Meme Araujo M.D. [email or web address]
--- OUTSIDE RECORDS SUMMARY | 2025-02-24 15:37 | XMS_ITS | Encounter Summary ---
Author Organization [facility] Address [address] [place] [address] Care Team Providers Care Brewery Representative Name Role Phone Unavailable Primary Care Provider Unavailabl e Encounter Details Date Type Department Care Team (Late st Contact Info) Description 02/09/2025 Results Follow-Up [facility] [address] [place] [phone] Gilbert Patricio MD [address] [place] [phone] PACER PROGRAM EVAL DUAL LEAD Social History Tobacco Use Types Packs/Day Years Used Date Smoking Tobacco: Never Smokeless Tobacco: Never Alcohol Use Standard Drinks/Week Comments Never 0 (1 standard drink = 0.6 oz pur e alcohol) Feeling Safe Answer Date Recorded Are you in a relationship wi th someone who hurts you emotionally and/or physically? No 08/25/2024 Food Insecurity Answer Date Recorded Patient needs follow up regardin 08/25/2024 Transportation Needs Answer Date Record ed Patient needs follow up regardin 08/25/2024 Utility Needs Answer Date Recorded Patient needs follow up regardin 08/25/2024 Comments No Sex and Gender Information Value Date Recorded Sex Assigned at Not on file Legal Sex Female 10:45 AM CERTIFIED PERSONAL TRAINER Gender Identity Not on file Sexual Orientation Not on file documented as of this encounter Miscellaneous Notes * Result Encounter Note - Gilbert Patricio MD - 02/09/2025 4:10 PM CERTIFIED PERSONAL TRAINER My interpretation is in agreement with the above documentation. IFIED PERSONAL TRAINER documented in this encounter Plan of Treatment Upcoming Encounters Date Type Department Care Team (Late st Contact Info) Description 05/03/2025 8:00 AM CERTIFIED PERSONAL TRAINER Procedure visit [facility] [address] [place] [phone] Gilbert Patricio MD [address] [place] [phone] 07/21/2025 1:00 PM CDT Office Visit [facility] [address] [place] [phone] Gilbert Patricio MD [address] [place] [phone] Bree Esquivel, MENG [address], [address] [place] [phone] documented as of this encounter Visit Diagnoses Not on filedocumented in this encounter
--- OUTSIDE RECORDS SUMMARY | 2025-02-24 15:38 | XMS_ITS | Clinical Summary ---
Author Organization [facility] Address [address] [facility] Attn: Epic Prelude ADT JAIMIE LOZADA [phone] Care Team Providers Care Support Dba Name Role Phone Unavailable Primary Care Provider Unavailabl e Allergies Active Allergy Reactions Criticality Noted Date Comments Penicillins Unknown 01/09/2021 Medications levothyroxine 50 mcg tablet Take 50 mcg by mouth daily. 1 Active citalopram (CeleXA) 20 mg tablet Take 10 mg by mouth daily at bedtime. Active multivit with calcium,iron,min (WOMEN'S MULTIPLE VITAMINS ORAL) Take by mouth. Active donepeziL (ARICEPT) 10 mg tabletIndication s:Late onset Alzheimer's disease without behavioral disturbance (CMS/HCC) Take 1 Tablet (10 mg) by mouth daily at bedtime. 90 Tablet 3 3 Active ezetimibe (ZETIA) 10 mg tablet 1 tablet Orally Once a day Active fexofenadine (ZAK) 180 mg tablet 1 tablet Swallow whole with water; do not take with fruit juices. Orally Once a day Active fluticasone propionate (FLONASE) 50 mcg/spray [place], Suspension nasal inhaler 1 spray in each nostril Nasally Once a day for 30 days 3 Active latanoprost (XALATAN) 0.005 % solution 1 drop into affected eye in the evening. OU Ophthalmic Once a day 3 Active chlorzoxazone (PARAFON FORTE) 500 mg tablet 1/2-1tablet as needed for neck spasm Orally Three times a day 3 Active alendronate (FOSAMAX) 70 mg tablet Take 70 mg by mouth every 7 days. empty stomach before other meds,with 8oz of water, stay upright 30 min Active busPIRone (BUSPAR) 5 mg tablet Take 1 Tablet by mouth daily. Active Active Problems Problem Noted Date Diagnosed Date History of dementia 08/25/2024 Sinus arrest 08/25/2024 Sick sinus syndrome 08/25/2024 Cognitive decline 04/30/2021 Recurrent syncope 01/09/2021 Postural dizziness with near syncope 01/09/2021 Acquired hypothyroidism 01/09/2021 Age-related osteoporosis wit hout current pathological fracture 01/09/2021 Encounters Date Type Department Care Team Description 02/15/2025 External Device Data STL ABSTRACTION Provider, Abstract 02/09/2025 Results Follow-Up [facility] [address] [place] [phone] Gilbert Patricio MD PACER PROGRAM EVAL DUAL LEAD 01/26/2025 11:45 AM CDT Procedure visit [facility] [address] [place] [phone] Mello Paris CRNP Parvathaneni, Sunthosh, MD Sinus arrest (Primary Dx); Syncope, unspecified syncope type 01/26/2025 11:40 AM CDT Office Visit [facility] [address] [place] [phone] Gilbert Patricio MD Myer, Walter Donald, CRNP SSS (sick sinus syndrome) ([facility]) (Primary Dx); Sinus arrest; Pacemaker 01/21/2025 Orders Only [facility] [address] [place] [phone] Mello Paris CRNP SSS (sick sinus syndrome) ([facility]) (Primary Dx); Syncope, unspecified syncope type; Bradycardia; Sinus arrest 01/19/2025 External Device Data STL ABSTRACTION Provider, Abstract 11/30/2024 External Device Data STL ABSTRACTION Provider, Abstract from Last 3 Months Immunizations Immunization Administration Dates Next Due (TDVAX)(7 YRS UP) TETANUS AN D DIPHTHERIA TOXOIDS, ADSORBED (2 LF OF TETANUS TOXOID AND 2 LF OF DIPHTHERIA TOXOID), 0.5ML (PF), IM 12/07/2004 Social History Tobacco Use Types Packs/Day Years Used Date Smoking Tobacco: Never Smokeless Tobacco: Never Tobacco Cessation:Counseling Given: Not Answered Alcohol Use Standard Drinks/Week Comments Never 0 [...] on file Legal Sex Female 10:45 AM BUSHER HELPER Gender Identity Not on file Sexual Orientation Not on file Last Filed Vital Signs Vital Sign Reading Time Taken Comments Blood Pressure 124/76 01/26/2025 11:48 AM CDT Pulse 64 01/26/2025 11:48 AM CDT Temperature 36.8 C (98.3 F) 08/27/2024 8:09 AM CDT Respiratory Rate 16 08/27/2024 8:09 AM CDT Oxygen Saturation 96% 08/27/2024 8:09 AM CDT Inhaled Oxygen Concentration - - Weight 53.1 kg (117 lb) 01/26/2025 11:48 AM CDT Height 149.9 cm (4' 11 ) 01/26/2025 11:48 AM CDT Body Mass Index 23.63 01/26/2025 11:48 AM CDT Plan of Treatment Upcoming Encounters Date Type Department Care Team (Late st Contact Info) Description 05/03/2025 8:00 AM BUSHER HELPER Procedure visit [facility] [address] [facility] [address] [place] [phone] Gilbert Patricio MD [address] [facility] [address] [place] [phone] 07/21/2025 1:00 PM CDT Office Visit [facility] [address] [facility] [address] [place] [phone] Gilbert Patricio MD [address] [place] [address] Bree Esquivel, MENG [address] [place] [address] Health Maintenance Due Date Last Done Comments PNEUMOCOCCAL VACCINE 50+ YEA RS (1 of 1 - PCV) 11/23/1993 ZOSTER VACCINE (1 of 2) 11/23/1993 DTAP/TDAP/TD VACCINES (1 - Tdap) 12/08/2004 12/08/19 05 OSTEOPOROSIS SCREENING 11/23/2008 RSV VACCINE (60+ or ) (1 - 1-dose 75+ series) 11/23/2018 INFLUENZA VACCINE (#1) 2024 COVID-19 Vaccine ( season) 2024 03/16/2021, 06/20/2020, 05/23/2020 Medical Devices Implanted Type Area Butcher Meat Device Identifier Shelf Expiration Date Model / Serial / Lot Lead Pacing Capsure Fix Novus 52cm [id number] - [facility] [place] - [id number] Implanted:Qty: 1 on 08/26/2024 by Gilbert Patricio MD at [facility] Lead Left: Chest Wall [employer]- CRM - BULK BUY [id number] 04/15/2025 [id number] / [id number] 11 / Lead Pacing David Kaur 45cm [id number] - [facility] [place] - [id number] Implanted:Qty: 1 on 08/26/2024 by Gilbert Patricio MD at [facility] Lead Left: Chest Wall [employer]- CRM - BULK BUY [id number] 01/26/2026 [id number] / [id number] 12 / Pacemaker Rosa Xt Dr Mri Ipg Dual Chmbr Surescan [id number] - [id number] Implanted:Qty: 1 on 08/26/2024 by Gilbert Patricio MD at [facility] Pacemaker Left: Chest Wall [employer]- CRM - BULK BUY [id number] 12/26/2025 [id number] / [id number] / Procedures Procedure Name Priority Date/Time Associated Diagnosis Comments [place] PROGRAM EVAL IMPLANTABLE IN PERSN DUAL LD PACER Routine 02/09/2025 7:12 AM BUSHER HELPER Sinus arrest Syncope, unspecified syncope type KS ECG ROUTINE ECG W/LEAST 12 LDS W/I&R Routine 01/26/2025 12:01 PM CDT SSS (sick sinus syndrome) (CMS/HCC) Syncope, unspecified syncope type Bradycardia Sinus arrest from Last 3 Months Results * KS PROGRAM EVAL IMPLANTABLE IN PERSN DUAL LD PACER (02/09/2025 7:12 AM BUSHER HELPER) Narrative [facility] [place] [place] - 02/09/2025 7:12 AM BUSHER HELPER Eliana Disla 02/09/2025 7:13 AM Office Device Check By Vendor Grain Shoveler Date of Procedure: January 26, 2025 Butcher Meat: [employer] Comments: Office check by [employer] personal banking representative in conjunction w/ EP office visit. Interrogation reviewed by provider. Please see scan for details. Procedure Note Eliana Disla - 02/09/2025 7:12 AM CST Office Device Check By Vendor Grain Shoveler Date of Procedure: January 26, 2025 Butcher Meat: [employer] Comments: Office check by [employer] personal banking representative in conjunction w/ EPoffice visit. Interrogation reviewed by provider. Please see scan for details. us Gilbert Patricio MD CARDIAC SERVICES ORDERA BLES Final Result [facility] [place] [place] [address] [place] [address] * [place] ECG ROUTINE ECG W/LEAST 12 LDS W/I&R (01/26/2025 12:01 PM CDT) Narrative [facility] - 01/26/2025 12:01 PM CDT Mello ParisPRAVIN malcolm 01/26/2025 12:09 PM 12 Lead EKG: Rhythm: Atrial-Paced rhythm, LAFB, Abnormal ecg, ventricular rate 64 bpm, KS interval 198 ms, QRS duration 72 ms, QTc 422 ms Procedure Note Mello ParisPRAVIN - 01/26/2025 12:01 PM CDT 12 Lead EKG: Rhythm: Atrial-Paced rhythm, LAFB, Abnormal ecg, ventricularrate 64 bpm, KS interval 198 ms, QRS duration 72 ms, QTc 422 ms us Mello COSTELLO ECG ORDERABLES Final Re [facility] [id number] [address] [address] [place] [address], [place] [phone] from Last 3 Months Insurance [place] [id number] [facility] [place] [id number] [employer] Medicare Part D Advance Directives For more information, please contact: [phone] Documents on File Type Date Recorded Patient Grain Shoveler Expl anation Advance Directive POA 01/26/2025 11:05 AM Advance Directive POA Advance Directive Living Will 01/26/2025 11:04 AM Advance Directive Living Will * Full Code (Latest Code Status on File) Date Activated Date Inactivated Comments 08/26/2024 5:11 PM 08/27/2024 12:31 PM * Full Code Date Activated Date Inactivated Comments 08/25/2024 4:34 PM 08/26/2024 5:11 PM * Full Code Date Activated Date Inactivated Comments 01/09/2021 9:27 PM 01/12/2021 1:41 PM
--- OUTSIDE RECORDS SUMMARY | 2025-02-24 15:38 | XMS_ITS | Patient Health Record ---
Author Organization [facility] Address [address] [place] [address] Support Name Relationship Address Phone Ysabel Jeter Guarantor Unknown [phone] Reason For Referral No Information Problems Problem Type SNOMED Code ICD Code Onset Dates Problem Status W/U Status Risk Notes Problem Shortness of breath (218316776) Shortness of breath (R06.02) Active confirmed [facility] [id number] Problem Syncope and collapse (119486688) Syncope and collapse (R55) Active confirmed [facility] [id number] Snomed Description: Syncope and collapse Plan Of Treatment No Information
--- OUTSIDE RECORDS SUMMARY | 2025-02-24 15:38 | XMS_ITS | Patient Health Record ---
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 Name Role Phone Dori Gomez Unavailable [phone] Allergies Allergen (clinical drug ingredient) Drug/Non Drug Allergy documented on EMR Reaction Allergy Type Onset Date Status Penicillin Unknown Drug Allergy Active Results Component Value Reference Range Notes COMPREHENSIVE METABOLIC BREN Morton ([id number]) Reviewed date:01/22/2025 06:21:25 PM Interpretation: Performing Lab:[place], [facility]-[id number] Yolanda Weiss, EdsruzTP[address] Mikhail Pedraza MD Notes/Report: 0 0 0 [...] Reviewed date:01/22/2025 06:21:25 PM Interpretation: Performing Lab:[facility] [employer]-Vewjkl43851 Tripp RamiresUjfmfqPQ[address] Mikhail Pedraza MD Notes/Report: 0 0 0 [...] MPV 10.6 7.5-12.5 fL ABSOLUTE NEUTROPHILS 5278 3952-3274 cells/uL ABSOLUTE LYMPHOCYTES [phone] cells/uL ABSOLUTE MONOCYTES 343 200-950 cells/uL ABSOLUTE EOSINOPHILS 7 15-500 cells/uL ABSOLUTE BASOPHILS 29 0-200 cells/uL NEUTROPHILS 72.3 LYMPHOCYTES 22.5 MONOCYTES 4.7 EOSINOPHILS 0.1 BASOPHILS 0.4 URINALYSIS, COMPLETE W/REFLE X TO CULTURE ([id number]) Reviewed date:01/22/2025 06:21:25 PM Interpretation: Performing Lab:[facility] [employer] [facility]-[id number] Yolanda Rascon, NvjkgaFI[address] Mikhail Pedraza MD Notes/Report: 0 0 0 [...] C ULTURE INDICATED TSH W/REFLEX TO FT4 ([id number]) Reviewed date:01/22/2025 06:21:25 PM Interpretation: Performing Lab:[facility]-Xikvhz85429 Yolanda Rascon, WicvfyIA[address] Mikhail Pedraza MD Notes/Report: 0 0 0 0 0 0 0 0 TSH W/REFLEX TO FT4 0.26 0.40-4.50 mIU/L T4, FREE 1.5 0.8-1.8 ng/dL TSH W/REFLEX TO FT4 ([id number]) Reviewed date:10/07/2024 08:17:38 AM Interpretation: Performing Lab:[facility]-Criedx43858 Yolanda Rascon, IkhsyqNM[address] Mikhail Pedraza MD Notes/Report: 0 0 0 TSH W/REFLEX TO FT4 0.70 0.40-4.50 mIU/L CBC (INCLUDES DIFF/PLT) ([id number]) Reviewed date:10/07/2024 08:17:38 AM Interpretation: Performing Lab:[facility]-Ofhjrq58727 Yolanda Rascon, GbokcbZS[address] Mikhail Pedraza MD Notes/Report: 0 0 0 WHITE BLOOD CELL COUNT 5.8 3.8-10.8 Thousand/ uL RED BLOOD CELL COUNT 4.22 3.80-5.10 Million/uL HEMOGLOBIN 13.4 11.7-15.5 g/dL HEMATOCRIT 41.1 35.0-45.0 % MCV 97.4 80.0-100.0 fL MCH 31.8 27.0-33.0 pg MCHC 32.6 32.0-36.0 g/dL For adults, a slight decrease in the calculated MCHC value (in the range of 30 to 32 g/dL) is most likely not clinically significant; however, it should be interpreted with caution in correlation with other red cell parameters and the patient's clinical condition. RDW 11.8 11.0-15.0 % PLATELET COUNT 186 140-400 Thousand/uL MPV 10.6 7.5-12.5 fL ABSOLUTE NEUTROPHILS 3741 0928-1701 cells/uL ABSOLUTE LYMPHOCYTES 7572 992-4682 cells/uL ABSOLUTE MONOCYTES 423 200-950 cells/uL ABSOLUTE EOSINOPHILS 41 15-500 cells/uL ABSOLUTE BASOPHILS 52 0-200 cells/uL NEUTROPHILS 64.5 LYMPHOCYTES 26.6 MONOCYTES 7.3 EOSINOPHILS 0.7 BASOPHILS 0.9 COMPREHENSIVE METABOLIC PANE L ([id number]) Reviewed date:10/07/2024 08:17:38 AM Interpretation: Performing Lab:[facility]-Wmqprx58225 Yolanda Rascon, DoqomcOF[address] Mikhail Pedraza MD Notes/Report: 0 0 0 GLUCOSE 78 65-99 mg/dL Fasting reference interval UREA NITROGEN (BUN) 17 7-25 mg/dL CREATININE 0.93 0.60-0.95 mg/dL EGFR 62 > OR = 60 mL/min/1.73m2 BUN/CREATININE RATIO SEE NOTE: 6-22 (calc) Not Reported: BUN and Creatinine are within reference range. SODIUM 137 135-146 mmol/L POTASSIUM 4.6 3.5-5.3 mmol/L CHLORIDE 104 98-110 mmol/L CARBON DIOXIDE 17 20-32 mmol/L CALCIUM 9.3 8.6-10.4 mg/dL PROTEIN, TOTAL 6.5 6.1-8.1 g/dL ALBUMIN 4.2 3.6-5.1 g/dL GLOBULIN 2.3 1.9-3.7 g/dL (calc) ALBUMIN/GLOBULIN RATIO 1.8 1.0-2.5 (calc) BILIRUBIN, TOTAL 0.6 0.2-1.2 mg/dL ALKALINE PHOSPHATASE 84 37-153 U/L AST 26 10-35 U/L ALT 14 6-29 U/L TSH W/REFLEX TO FT4 ([id number]) Reviewed date:07/15/2024 12:00:27 PM Interpretation: Performing Lab:[facility] [employer] [facility]-Qjozvq83034 Yolanda Rascon, CvogddZF[address] Mikhail Pedraza MD Notes/Report: 0 0 0 0 0 0 0 0 TSH W/REFLEX TO FT4 6.19 0.40-4.50 mIU/L T4, FREE 1.0 0.8-1.8 ng/dL CBC (INCLUDES DIFF/PLT) (639 9) Reviewed date:07/15/2024 12:00:27 PM Interpretation: Performing Lab:[facility] [facility]-Ibhqqg84178 Yolanda Rascon, DqlrghSM[address] Mikhail Pedraza MD Notes/Report: 0 0 0 0 WHITE BLOOD CELL COUNT 7.2 3.8-10.8 Thousand/ uL RED BLOOD CELL COUNT 4.53 3.80-5.10 Million/uL HEMOGLOBIN 14.4 11.7-15.5 g/dL HEMATOCRIT 43.2 35.0-45.0 % MCV 95.4 80.0-100.0 fL MCH 31.8 27.0-33.0 pg MCHC 33.3 32.0-36.0 g/dL For adults, a slight decrease in the calculated MCHC value (in the range of 30 to 32 g/dL) is most likely not clinically significant; however, it should be interpreted with caution in correlation with other red cell parameters and the patient's clinical condition. RDW 12.0 11.0-15.0 % PLATELET COUNT 263 140-400 Thousand/uL MPV 11.0 7.5-12.5 fL ABSOLUTE NEUTROPHILS 4550 4296-2546 cells/uL ABSOLUTE LYMPHOCYTES 2117 850-3900 cells/uL ABSOLUTE MONOCYTES 439 200-950 cells/uL ABSOLUTE EOSINOPHILS 50 15-500 cells/uL ABSOLUTE BASOPHILS 43 0-200 cells/uL NEUTROPHILS 63.2 LYMPHOCYTES 29.4 MONOCYTES 6.1 EOSINOPHILS 0.7 BASOPHILS 0.6 COMPREHENSIVE METABOLIC PANE L ([id number]) Reviewed date:07/15/2024 12:00:27 PM Interpretation: Performing Lab:[facility]-Npjatw27999 Yolanda Rascon, [id number] Mikhail Pedraza MD Notes/Report: 0 0 0 0 GLUCOSE 89 65-99 mg/dL Fasting reference interval UREA NITROGEN (BUN) 20 7-25 mg/dL CREATININE 1.06 0.60-0.95 mg/dL EGFR 53 > OR = 60 mL/min/1.73m2 BUN/CREATININE RATIO 19 6-22 (calc) SODIUM 141 135-146 mmol/L POTASSIUM 4.0 3.5-5.3 mmol/L CHLORIDE 103 98-110 mmol/L CARBON DIOXIDE 28 20-32 mmol/L CALCIUM 9.6 8.6-10.4 mg/dL PROTEIN, TOTAL 6.7 6.1-8.1 g/dL ALBUMIN 4.3 3.6-5.1 g/dL GLOBULIN 2.4 1.9-3.7 g/dL (calc) ALBUMIN/GLOBULIN RATIO 1.8 1.0-2.5 (calc) BILIRUBIN, TOTAL 0.7 0.2-1.2 mg/dL ALKALINE PHOSPHATASE 79 37-153 U/L AST 20 10-35 U/L ALT 13 6-29 U/L LIPID PANEL, STANDARD (7600) Reviewed date:07/15/2024 12:00:27 PM Interpretation: Performing Lab:[employer]-[id number] Yolanda [facility], AmptleIM[address] Mikhail Pedraza MD Notes/Report: 0 0 0 0 CHOLESTEROL, TOTAL 272 <200 mg/dL HDL CHOLESTEROL 77 > OR = 50 mg/dL TRIGLYCERIDES 119 <150 mg/dL LDL-CHOLESTEROL 170 Reference range: <100 Desirable range <100 mg/dL for primary prevention; <70 mg/dL for patients with CHD or diabetic patients with > or = 2 CHD risk factors. LDL-C is now calculated using the Adrian-Dowd calculation, which is a validated novel method providing better accuracy than the Friedewald equation in the estimation of LDL-C. Adrian GARCIA et al. STEF. 2013;310(19): 3226-4532 (http://education.[employer]/faq/FAQ16 4) CHOL/HDLC RATIO 3.5 <5.0 (calc) NON HDL CHOLESTEROL 195 <130 mg/dL (calc) For patients with diabetes plus 1 major ASCVD risk factor, treating to a non-HDL-C goal of <100 mg/dL (LDL-C of <70 mg/dL) is considered a therapeutic option. Reason For Referral Reason needs f/u with dr bobby sequeira. has seen him in past few years. cxr and ekg pending Diagnosis 1 Sinus bradycardia (R 00.1) [facility] Referring Provider First Name Dori Referring Provider Last Name Referring Provider [facility] Referred Provider Heart And Lung Faustina crawley, [facility] General Notes Rivka Hazel 2024 12:32:51 PM >Ins card attached. Referral faxed.Yasemin Wendy 07/26/2024 01:51:02 PM >TC to [facility] Heart & Lung. Left message to return my call., Ada Rendon 07/27/2024 10:33:48 AM >rc from Fausto @[facility] Heart and Lung, stated they didn't see the urgent message but referral is now currently in review w/ Booster Pump OilerYasemin Wendy 07/28/2024 02:10:41 PM >TC from pt's . Relayed the above messages. He will call [facility] and check on the referral.Yasemin Wendy 08/05/2024 01:09:15 PM >Attempt TC to [facility] Heart & Lung. Left message to return my call., Rivka Hazel 08/12/2024 01:43:38 PM >TC to Naty Jones w/ [facility] Heart & Lung. Confirmed appt 08/06/24. Referral Priority Urgent Referral Appointment Date 08/06/2024 Reason dexa. prefers 5 in afternoon Diagnosis 1 Post-menopausal (Z78 .0) [facility] Referring Provider First Name Dori Referring Provider Last Name Referring Provider [facility] Procedure 1 DXA BONE DENSITY, AX IAL (33386) General Notes Rivka Hazel 2024 11:45:46 AM >Insurance card attached. No prior auth required for dexa scan. Referral faxed.Yasemin Wendy 10/06/2024 09:23:45 AM >TC from pt's . Pt prefers OZ and not [place]. Updated referral., Faxed to [facility].Yasemin Wendy 10/07/2024 11:15:21 AM >TC to [place] w/ [facility] Centralized Scheduling. Was told pt's referral is pending.Yasemin Wendy 10/14/2024 04:05:25 PM >Attempt TC to [facility] Centralized Scheduling. Left message to return my call., Rivka Hazel 10/18/2024 11:16:13 AM >TC samantha Hastings at [facility] Centralized Scheduling. Confirmed appt 11/09/24 at 1 pm. Referral Priority Routine Referral Appointment Date 11/09/2024 Medications Medication SIG (Take, Route, Frequency, Duration) Notes Start Date End Date Status Levothyroxine Sodium 25 MCG 1 tablet in the morning on an empty stomach Orally Once a day dose decrease. 01/22/2025 Active Multivitamin - 1 tablet Orally Once a day Active Fluticasone Propionate 50 MCG/ACT 1 spray in each nostril Nasally Once a day; Duration: 30 days 06/10/2022 Not-Taking Citalopram Hydrobromide 20 MG 1 tablet Orally Once a day; Duration: 100 days 10/05/2024 Active Alendronate Sodium 70 MG 1 tablet 30 minutes before the first food, beverage or medicine of the day with plain water Oral once weekly Active busPIRone HCl 5 MG 1 tablet Orally Once a day; Duration: 100 days 01/21/2025 03/23/2026 Active Ezetimibe 10 MG 1 tablet Orally Once a day Active Donepezil HCl 5 MG 1 tablet at bedtime Orally daily; Duration: 100 days Active Latanoprost 0.005 % 1 drop into affected eye in the evening. OU Ophthalmic Once a day 01/21/2023 Active Fexofenadine HCl 180 MG 1 tablet Swallow whole with water; do not take with fruit juices. Orally Once a day Not-Taking Chlorzoxazone 500 MG 1/2-1tablet as needed for neck spasm Orally Three times a day 04/05/2022 Not-Taking Social History Tobacco Use: Social History Observation Description Date Details (start date - stop date) Never Smoker NA - NA Sex Assigned At : Social History Observation Description Sex Assigned At Female Household Question Answer Notes Marital status: Tobacco Use/Smoking Question Answer Notes Tobacco use: nonsmoker Problems Problem Type SNOMED Code ICD Code Onset Dates Problem Status W/U Status Risk Notes Problem Alzheimer's disease with late onset (926460104) Alzheimer's disease with late onset (G30.1) Active confirmed Problem Alzheimer's disease (87333227) Alzheimer's disease, unspecified (G30.9) Active confirmed Problem Sick sinus syndrome (50567842) Sick sinus syndrome (I49.5) Active confirmed Problem Environmental allergy (127802511) Environmental allergies (Z91.09) Active confirmed Problem Anxiety (59037795) Anxiety (F41.9) Active confi rmed Problem Hyperlipidaemia (92274971) Hyperlipidemia, unspecified hyperlipidemia type (E78.5) Active confirmed Problem Memory loss (57664661) Memory loss (R41.3) Active confirmed Problem Hypothyroidism (10082544) Hypothyroidism, unspecified type (E03.9) Active confirmed Problem Dementia (05831677) Dementia in other diseases classified elsewhere, unspecified severity, without behavioral disturbance, psychotic disturbance, mood disturbance, and anxiety (F02.80) Active confirmed Problem Dementia in othe r diseases classified elsewhere, mild, without behavioral disturbance, psychotic disturbance, mood disturbance, and anxiety (F02.A0) Active confirmed Problem Chronic rhinitis (19739355) Rhinitis, unspecified type (J31.0) Active confirmed Problem Glaucoma (04572837) Glaucoma of both eyes, unspecified glaucoma type (H40.9) Active confirmed Problem Renal function tests abnormal (927292073) Decreased GFR (R94.4) Active confirmed Problem Osteopenia (409399775) Osteopenia, unspecified location (M85.80) Active confirmed Problem Personal risk factor (074097182) Fracture Risk Assessment Score (FRAX) indicating greater than 3% risk for hip fracture (Z91.89) Active confirmed Problem Cardiac pacemaker (84327397) Cardiac pacemaker (Z95.0) Active confirmed Vital Signs Heart Rate 74 /min 02/16/2025 Temperature 97.1 degrees Fahrenheit 02/16/2025 Height-cm 148.59 cm 02/16/2025 Oximetry 98 % 02/16/2025 Blood pressure diastolic 62 mm Hg 02/16/2025 Weight-kg 53.8 kg 02/16/2025 Height 58.5 in 02/16/2025 Blood pressure systolic 118 mm Hg 02/16/2025 Weight 118.6 lbs 02/16/2025 BMI 24.36 kg/m2 02/16/2025 Encounters Encounter Location Date Provider Diagnosis [place] [address] [address] 01/19/2025 Dori Gomez Hypothyroidism, unspecified type E03.9 ; Memory loss R41.3 ; Alzheimer's disease, unspecified G30.9 ; Depression, unspecified depression type F32.A and Decreased GFR R94.4 [facility] [place] [address] [address] 03/02/2024 Dori Gomez Alzheimer's disease, unspecified G30.9 and Dementia in other diseases classified elsewhere, unspecified severity, without behavioral disturbance, psychotic disturbance, mood disturbance, and anxiety F02.80 [facility] [address] [address] 07/14/2024 Dori Gomez Hyperlipidemia, unspecified hyperlipidemia type E78.5 ; Hypothyroidism, unspecified type E03.9 and Decreased GFR R94.4 [facility] [place] [address] [address] 07/21/2024 Dori Gomez Sinus bradycardia R0 0.1 ; Hypothyroidism, unspecified type E03.9 ; Memory loss R41.3 ; Hyperlipidemia, unspecified hyperlipidemia type E78.5 ; Osteopenia, unspecified location M85.80 ; Glaucoma of both eyes, unspecified glaucoma type H40.9 ; Alzheimer's disease, unspecified G30.9 ; Mild depression F32.A and Decreased GFR R94.4 [facility] [place] [address] [address] 09/06/2024 Dori Gomez Mild depression F32. A ; Cardiac pacemaker Z95.0 ; Hypothyroidism, unspecified type E03.9 ; Memory loss R41.3 and Hyperlipidemia, unspecified hyperlipidemia type E78.5 [facility] [place] [address] [address] 10/05/2024 Dori Mild depression F32. A ; Memory loss R41.3 ; Hyperlipidemia, unspecified hyperlipidemia type E78.5 ; Osteopenia, unspecified location M85.80 ; Alzheimer's disease, unspecified G30.9 ; Decreased GFR R94.4 ; Hypothyroidism, unspecified type E03.9 ; Sick sinus syndrome I49.5 and Severe dementia, unspecified dementia type, unspecified whether behavioral, psychotic, or mood disturbance or anxiety F03.C0 [facility] [address] [place] [address] 02/16/2025 Dori Gomez Hypothyroidism, unspecified type E03.9 ; Memory loss R41.3 ; Alzheimer's disease, unspecified G30.9 ; Depression, unspecified depression type F32.A and Anxiety F41.9 [facility] [address] [place] [address] 07/26/2024 [facility] [address] [place] [address] 10/07/[address] [address] 01/18/[address] [address] 01/22/2025 Dori Gomez Hypothyroidism, unspecified type E03.9 Assessments Encounter Date Diagnosis (ICD Code) Assessment Notes Treatment Notes Treatment Clinical Notes Section Notes 03/02/2024 Alzheimer's disease, unspecified (ICD-10 - G30.9) Alzheimer's Disease: Care Instructions material was printed 03/02/2024 Dementia in other diseases classified elsewhere, unspecified severity, without behavioral disturbance, psychotic disturbance, mood disturbance, and anxiety (ICD-10 - F02.80) 07/14/2024 Hyperlipidemia, unspecified hyperlipidemia type (ICD-10 - E78.5) labs drawn by Amina Vallecillo LPN 07/21/2024 Hypothyroidism, unspecified type (ICD-10 - E03.9) 07/21/2024 Sinus bradycardia (ICD-10 - R00.1) CXR and E[facility] at [facility] 09/06/2024 Mild depression (ICD-10 - F32.A) 09/06/2024 Cardiac pacemaker (ICD-10 - Z95.0) Keep follow-up with cardiology 10/05/2024 Mild depression (ICD-10 - F32.A) 01/19/2025 Memory loss (ICD-10 - R41.3) 01/19/2025 Hypothyroidism, unspecified type (ICD-10 - E03.9) 01/22/2025 Hypothyroidism, unspecified type (ICD-10 - E03.9) 02/16/2025 Memory loss (ICD-10 - R41.3) 02/16/2025 Hypothyroidism, unspecified type (ICD-10 - E03.9) plan to check TSH in 2 weeks 02/16/2025 Alzheimer's disease, unspecified (ICD-10 - G30.9) 01/19/2025 Alzheimer's disease, unspecified (ICD-10 - G30.9) 10/05/2024 Memory loss (ICD-10 - R41.3) 07/21/2024 Memory loss (ICD-10 - R41.3) 09/06/2024 Hypothyroidism, unspecified type (ICD-10 - E03.9) 07/14/2024 Hypothyroidism, unspecified type (ICD-10 - E03.9) 07/14/2024 Decreased GFR (ICD-10 - R94.4) 07/21/2024 Hyperlipidemia, unspecified hyperlipidemia type (ICD-10 - E78.5) Heart healthy diet 10/05/2024 Hyperlipidemia, unspecified hyperlipidemia type (ICD-10 - E78.5) 09/06/2024 Memory loss (ICD-10 - R41.3) 01/19/2025 Depression, unspecified depression type (ICD-10 - F32.A) 02/16/2025 Depression, unspecified depression type (ICD-10 - F32.A) improved 02/16/2025 Anxiety (ICD-10 - F41.9) improved 10/05/2024 Osteopenia, unspecified location (ICD-10 - M85.80) 09/06/2024 Hyperlipidemia, unspecified hyperlipidemia type (ICD-10 - E78.5) 07/21/2024 Osteopenia, unspecified location (ICD-10 - M85.80) 07/21/2024 Glaucoma of both eyes, unspecified glaucoma type (ICD-10 - H40.9) Follow-up Dr. Bullock ophthalmology. 10/05/2024 Alzheimer's disease, unspecified (ICD-10 - G30.9) 01/19/2025 Decreased GFR (ICD-10 - R94.4) 10/05/2024 Decreased GFR (ICD-10 - R94.4) 07/21/2024 Alzheimer's disease, unspecified (ICD-10 - G30.9) Donepezil 10/05/2024 Sick sinus syndrome (ICD-10 - I49.5) Follow-up [facility] cardiology 07/21/2024 Mild depression (ICD-10 - F32.A) 10/05/2024 Hypothyroidism, unspecified type (ICD-10 - E03.9) 10/05/2024 Severe dementia, unspecified dementia type, unspecified whether behavioral, psychotic, or mood disturbance or anxiety (ICD-10 - F03.C0) Follow-up emergency neurology 07/21/2024 Decreased GFR (ICD-10 - R94.4) 03/02/2024 Other Letter written to recommend excusing her from jury duty now, and anytime in the future. See scanned document 07/21/2024 Other Care Coordination Assessment completed, signed and dated by provider during visit. Plan Of Treatment Next Appt Details Provider Name:Dori Gomez , 03/03/2025 09:00:00 AM, [address], [address], Provider Name:Dori Morton , 04/07/2025 09:00:00 AM, [address], [address], [address], Provider Name:Dori Vuen , 04/14/2025 10:00:00 AM, [address], [address], Provider Name:Dori Morton , 06/16/2025 09:00:00 AM, [address] [facility], [address], [address], Insurance Providers Payer Name Payer Address Payer Phone Subscriber Number Group Number Insured Name Patient Relationship to Insured Coverage Start Date Coverage End Date [employer] [address] [address] [place], [place] [id number] [phone] [id number] Ysabel Jeter Self - patient is the insured Medical (General) History Medical History History ICD Code hypothyroidism hyperlipidemia memory loss depression DEXA 01/2022 mammogram 01/[address] Bullock Surgical History Surgery Date(Month/Year) tubal ligation
--- NOTE | 2025-02-24 15:42 | W.ED.ANXIETY ---
HPI - Anxiety General: Chief Complaint: Anxiety Stated Complaint: SOB on exertion Time Seen by Provider: 02/24/25 15:36 Source: patient and family Mode of arrival: ambulatory Limitations: no limitations History of Present Illness: 79-year-old female with history dementia per patient and her states that over the last 6 months she has episodes where she gets very anxious and feels like she cannot breathe. States she has had 2-3 episodes since yesterday. States that she feels like her breathing is fast and she just cannot get a deep breath in. She denies any pain states she feels much improved currently denies any shortness of breath currently she denies any worsening improving factors Related Data Home Medications ?Medication ?Instructions ?Recorded ?Confirmed alendronate 70 mg tablet 70 mg PO Q7D 08/25/24 02/24/25 buspirone 5 mg tablet 5 mg PO DAILY 02/24/25 02/24/25 citalopram 20 mg tablet 20 mg PO DAILY 02/24/25 02/24/25 donepezil 5 mg tablet 5 mg PO DAILY 02/24/25 02/24/25 levothyroxine 25 mcg tablet 25 mcg PO QAM 02/24/25 02/24/25 sdearinw-bcj-[id number] ac 400 1 tab PO DAILY 02/24/25 02/24/25 mcg-calcium carb 500 mg-vit K1 20 mcg tablet Allergies Allergy/AdvReac Type Severity Reaction Status Date / Time Penicillins Allergy Unknown Verified 02/24/25 15:40 [facility] PFSH: Medical History (Updated 02/24/25 @ 16:53 by Tamra Lieberman MD) Numbness and tingling in both hands Weakness Family History Father Cancer Lung disease Brother Cancer Dementia Mother Dementia Grandfather Dementia Denies family history of Diabetes CAD (coronary artery disease) Clotting disorder Chronic kidney disease (CKD) Suicide Anesthesia complication Bleeding disorder Stroke Social History Smoking and tobacco/nicotine status: never used tobacco/nicotine Alcohol intake: never Substance/Drug Use: never Physical Exam Const: COMMON NORMALS: no acute distress, patient oriented x3 and healthy appearing HENMT: COMMON NORMALS: normocephalic and atraumatic HEAD & SCALP: normocephalic and atraumatic Eye: COMMON NORMALS: Equal, round and reactive pupils present PUPIL: Yes Equal, round and reactive pupils present Neck/C-Spine: COMMON NORMALS: full ROM and supple Chest: COMMONS NORMALS: normal inspection of the chest and normal palpation of entire chest wall Resp: COMMON NORMALS: normal respiratory effort, No retractions, No use of accessory muscles and clear to auscultation bilaterally AUSCULTATION: clear to auscultation bilaterally Cardio: COMMON NORMALS: regular rate, regular rhythm and No murmurs present (Cardio) RATE: regular rate RHYTHM: regular rhythm GI: COMMON NORMALS: Normal to inspection, nondistended, normoactive bowel sounds present, Soft to palpation, non-tender and no masses PALPATION: Yes Soft to palpation Extremity: COMMON NORMALS: normal to inspection and full ROM Neuro: COMMON NORMALS: patient oriented x3, moves all extremities and no focal motor deficits Psych: COMMON NORMALS: mental status grossly normal, Normal thought process present and cooperative THOUGHT PROCESS: Normal thought process present Skin: COMMON NORMALS: no rashes or lesions noted and no wounds GENERAL SKIN EXAM: no rashes or lesions noted Course Vital Signs: Vital signs: Vital Signs Temperature 97.7 F 02/24/25 15:34 Pulse Rate 69 02/24/25 15:34 Respiratory Rate 17 02/24/25 15:34 Blood Pressure 155/59 02/24/25 15:34 Pulse Oximetry 100 02/24/25 15:34 Oxygen Delivery Me thod Room Air 02/24/25 15:34 MDM - Anxiety Medical Decision Making 79-year-old female presents with episodes of dyspnea. Differential includes anxiety attack, pulm emboli, pneumonia. Patient's chest x-ray here was interpreted by me showed no acute abnormalities no signs of pneumonia. Blood work here showed no significant abnormalities did interpret EKG showed paced rhythm heart rate [address] elevation QRS 86 QTc 3438. She has no signs of pulmonary emboli. She has had no shortness of breath. These are likely panic attacks I did go over findings with her and her she is stable for discharge follow-up with her PCP and return if worsening. Medical Records I reviewed the patient's medical records. Lab Data I reviewed the patient's lab results. 02/24/25 16:09 02/24/25 16:09 Radiology Impressions Chest X-Ray 02/24/25 15:36 IMPRESSION: No acute cardiopulmonary findings. Laboratory Results WBC 9.10 10^3/uL (3.29-11.43) 02/24/25 16:09 RBC 4.81 10^6/uL (3.85-5.65) 02/24/25 16:09 Hgb 14.70 g/dL (11.27-16.99) 02/24/25 16:09 Hct 43.6 % (36-47) 02/24/25 16:09 MCV 90.6 fl (85-98) 02/24/25 16:09 MCH 30.6 pg (27-33) 02/24/25 16:09 MCHC 33.7 g/dL (30-55) 02/24/25 16:09 RDW 12.3 % (12.1-15.1) 02/24/25 16:09 Plt Count 217 10^3/cmm (157-399) 02/24/25 16:09 MPV 9.9 fL (7.4-10.4) 02/24/25 16:09 Neut % (Auto) 65.4 % 02/24/25 16:09 Lymph % (Auto) 25.7 % 02/24/25 16:09 Trinity % (Auto) 8.0 % 02/24/25 16:09 Eos % (Auto) 0.2 % 02/24/25 16:09 Baso % (Auto) 0.5 % 02/24/25 16:09 Neut # (Auto) 5.94 10^3/uL (1.8-7.7) 02/24/25 16:09 Lymph # (Auto) 2.3 10^3/uL (0.8-4.8) 02/24/25 16:09 Trinity # (Auto) 0.7 10^3/uL (0.2-0.9) 02/24/25 16:09 Eos # (Auto) 0.0 10^3/uL (0.0-0.8) 02/24/25 16:09 Baso # (Auto) 0.1 10^3/uL (0.0-0.1) 02/24/25 16:09 Nucleated RBC % (auto) 0 % 02/24/25 16:09 Nucleated RBCs # 0.0 /100WBC 02/24/25 16:09 PT 13.00 SECONDS (12.1-14.9) 02/24/25 16:09 INR 0.92 (0.8-1.2) 02/24/25 16:09 Sodium 141 mmol/L (136-145) 02/24/25 16:09 Potassium 3.7 mmol/L (3.5-5.1) 02/24/25 16:09 Chloride 102 mmol/L (98-107) 02/24/25 16:09 Carbon Dioxide 24 mmol/L (22-29) 02/24/25 16:09 Anion Gap 18.7 (5-19) 02/24/25 16:09 BUN 17 mg/dL (8-23) 02/24/25 16:09 Creatinine 1.0 mg/dL (0.5-0.9) H 02/24/25 16:09 GFR Calculation Not Reportable 02/24/25 16:09 Glucose 101 mg/dL (65-115) 02/24/25 16:09 Calculated Osmolality 294 mOsm/kg (285-295) 02/24/25 16:09 Calcium 9.8 mg/dL (8.5-10.5) 02/24/25 16:09 Total Bilirubin 1.0 mg/dL (0.15-1.2) 02/24/25 16:09 AST 30 U/L (0-32) 02/24/25 16:09 ALT 21 U/L (0-33) 02/24/25 16:09 Alkaline Phosphatase 101 U/L (35-105) 02/24/25 16:09 NT-Pro-B Natriuret Pep 281 pg/mL (0-450) 02/24/25 16:09 Total Protein 7.5 g/dL (6.6-8.7) 02/24/25 16:09 Albumin 4.7 g/dL (3.5-5.2) 02/24/25 16:09 Globulin 2.8 g/dL (1.3-4.6) 02/24/25 16:09 All radiology interpretation(s) finalized by discharge EKG Data EKG 1: I personally reviewed and interpreted this EKG as follows: EKG interpretation date: 02/24/25 EKG interpretation time: 15:49 Interpretation: Chest X-Ray 11/27/25 15:36 IMPRESSION: No acute cardiopulmonary findings. paced hr [address] elevation qrs 86 qtc 438 Other EKG comments: Chest X-Ray 02/24/25 15:36 IMPRESSION: No acute cardiopulmonary findings. Discharge Plan Discharge Patient Disposition: Home Clinical Impression: Dyspnea Condition: Stable Prescriptions: No Action alendronate 70 mg tablet 70 mg PO Q7D buspirone 5 mg tablet 5 mg PO DAILY donepezil 5 mg tablet 5 mg PO DAILY levothyroxine 25 mcg tablet 25 mcg PO QAM citalopram 20 mg tablet 20 mg PO DAILY One-A-Day Women's 50 Plus 400 mcg-500 mg calcium-20 mcg Tablet 1 tab PO DAILY Discharge Orders: Discharge ED (Routine); Ordered 02/24/25 Ordered By: Tamra Lieberman Referrals: Justin Jeter DO [Primary Care Provider, Family Practice] - 4-7 days Discharge Diet: Advance as tolerated Discharge Activity: Resume usual activity Patient Instructions: Dyspnea (ED) Print Language: Georgian Coding Level of Care Code ED Pcas for Parris Villalta
[2025-02-24 16:14] LABS: Hematocrit 43.6 % (36-47); Hemoglobin 14.70 g/dL (11.27-16.99); Mean Corpuscular HGB Conc 33.7 g/dL (30-55); Mean Corpuscular Hemoglobin 30.6 pg (27-33); Mean Corpuscular Volume 90.6 fl (85-98); Nucleated Red Blood Cells % 0 %; Platelet Count 217 10^3/cmm (157-399); Red Blood Count 4.81 10^6/uL (3.85-5.65); White Blood Count 9.10 10^3/uL (3.29-11.43)
[2025-02-24 16:29] LABS: INR 0.92 (0.8-1.2); Prothrombin Time 13.00 SECONDS (12.1-14.9)
[2025-02-24 16:48] LABS: Alanine Aminotransferase 21 U/L (0-33); Albumin Level 4.7 g/dL (3.5-5.2); Alkaline Phosphatase 101 U/L (35-105); Anion Gap 18.7 (5-19); Aspartate Amino Transferase 30 U/L (0-32); Blood Urea Nitrogen 17 mg/dL (8-23); Calcium 9.8 mg/dL (8.5-10.5); Carbon Dioxide 24 mmol/L (22-29); Chloride 102 mmol/L (98-107); Globulin 2.8 g/dL (1.3-4.6); Glucose 101 mg/dL (65-115); NT Pro B Type Natriuretic Pept 281 pg/mL (0-450); Osmolality Calculated 294 mOsm/kg (285-295); Potassium 3.7 mmol/L (3.5-5.1); Sodium 141 mmol/L (136-145); Total Protein 7.5 g/dL (6.6-8.7)
[2025-02-24 17:00] VITALS: BP 155/59; PULSE 61; O2SAT 100
[2025-02-24 17:03] VITALS: PULSE 62; O2SAT 100
== END 2025-02-24 17:08 | disposition home or self-care (01) ==
PROVIDERS: Emergency Provider Emergency Medicine; PCP Electrodiagnostic Medicine
DX: R06.00 Dyspnea, unspecified (principal)
CPT/HCPCS: 36415; 71045; 80053; 83880; 85025; 85610; 93005; 99285; J9999